=== PATIENT | female | born 1940 | race Caucasian/White ===

== ENCOUNTER 2018-07-15 17:15 | Inpatient (IN) ==
[2018-07-15] MEDS: NALOXONE HCL 0.4 MG/ML VIAL IV ONE (18:03)
[2018-07-15] MEDS: 0.9 % SODIUM CHLORIDE 1,000 ML IV ONE ×2 (18:03→20:45)
--- NOTE | 2018-07-15 18:08 | Emergency Department Note ---
Nausea/Vomiting/Diarrhea HPI - General Chief complaint: Nausea/Vomiting/Diarrhea Stated complaint: N/V/D x 2 Days Time Seen by Provider: 07/15/18 17:20 Source: patient, family, EMS Mode of arrival: EMS Limitations: no limitations - History of Present Illness HPI Narrative: This 77-year-old female was picked up by EMS after being summoned by . Reportedly had 103 degrees temp per EMS. Was found on the toilet. Had been there about 4 hours off of her oxygen which she takes at home at 2 to 3 L/min for chronic significant/severe COPD/emphysema. She has had nausea, vomiting, diarrhea for the last couple of days. is unaware of other specific fevers, chills, sweats. Diarrhea, nausea, vomiting began yesterday as well as becoming quite lethargic and listless and less responsive. When patient awoke after the Narcan she indicates that she has not had any diarrhea but has had yesterday one episode of vomiting and 3-4 episodes today. She seemed to struggle somewhat however, in remembering. - Related Data Home Medications Medication Instructions Recorded Confirmed Ranitidine HCl [Zantac] 300 mg PO QHS 09/14/14 06/03/18 Tiotropium [place] [Spiriva] 18 mcg INH DAILY 09/14/14 06/03/18 cholecalciferol (vitamin D3) 1,000 1,000 unit PO QDAY cap 07/06/16 06/03/18 unit capsule albuterol sulfate HFA 90 2 puff INHALATION Q6H PRN 03/13/18 06/03/18 mcg/actuation aerosol inhaler tramadol 50 mg tablet 50 mg PO TID PRN tab 03/13/18 06/03/18 ferrous sulfate 27 mg iron tablet 27 mg PO QDAY tab 04/29/18 06/03/18 Previous Rx's Medication Instructions Recorded sodium citrate-citric acid 500 30 ml PO QDAY #900 ml 09/07/17 mg-334 mg/5 mL oral solution Placard #1 ea 07/04/18 Allergies Allergy/AdvReac Type Severity Reaction Status Date / Time doxycycline Allergy Unknown Unknown Unverified 06/03/18 15:24 Review of Systems Constitutional: Denies: fever, chills, sweats Cardiovascular: Denies: chest pain Respiratory: Denies: shortness of breath, cough Gastrointestinal: Denies: abdominal pain Genitourinary: Denies: dysuria Neurological: Reports: headache, weakness, dizziness Psychiatric: Denies: anxiety, depression Past Medical History - Past Medical History [facility] Narrative: Medical History (Last Updated 07/15/18 @ 18:07 by Ravinder Dimas DO) History of bladder cancer (Chronic) History of recurrent UTI (urinary tract infection) (Chronic) Anemia in CKD (chronic kidney disease) (Chronic) Migraines (Chronic) 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) GERD (gastroesophageal reflux disease) (Chronic) Hypercholesterolemia (Chronic) Backache, unspecified (Chronic) Renal insufficiency, mild (Chronic) Rib pain on left side (Chronic) Incontinence (Chronic) Urethral cancer (Chronic) Osteopenia (Chronic) Heartburn (Chronic) Tobacco user (Chronic) Malignant neoplasm of bladder (Chronic) Actinic keratosis (Chronic) Hearing loss (Chronic) Urinary incontinence (Chronic) PVD (peripheral vascular disease) (Chronic) Chronic kidney disease, stage 3 (Chronic) Other emphysema (Chronic) KAUFFMAN (dyspnea on exertion) (Chronic) Past Surgical History (Last Updated 07/15/18 @ 18:08 by Ravinder Dimas DO) H/O lithotripsy (Chronic) History of bilateral salpingo-oophorectomy (BSO) (Chronic ~2003) History of total abdominal hysterectomy (Chronic ~2003) History of cholecystectomy (Chronic) H/O tubal ligation (Chronic ~2003) S/P appendectomy (Acute) History of surgery (Acute) History of bladder replacement (Chronic) History of tonsillectomy and adenoidectomy (Chronic) Family History (Last Reviewed 06/03/18 @ 15:46 by Rachana Hobbs RN) Unknown Family history unknown Medical history: Reports: other Psychiatric history: Denies: anxiety, depression Surgical history ED: Reports: cholecystectomy, BETH/BSO Family history: Reports: adopted - Social History smoking status: Former smoker Alcohol use: Reports: None Drug use: Reports: none. Denies: marijuana Physical Exam Limitations: no limitations General appearance: obtunded, sleepy, other (With being spoken to will raise her eyes and briefly make eye contact even an occasional smile.) Head: atraumatic, normocephalic Eye: Present: EOMI ENT: mucous membranes dry Neck: Present: trachea midline. Absent: lymphadenopathy, thyromegaly Chest: Present: symmetric chest wall rise Respiratory: Present: respiratory distress (Seems to be breathing in the rate of 34 to 38 breaths/min that are quite shallow. Poor respiratory effort. Durations running mostly in the upper 90s.), accessory muscle use. Absent: rales/crackles, wheezes, stridor, prolonged expiratory phase Cardiovascular: Present: tachycardia, other (Cardiac sounds are very distant and hard to hear. Radial pulses very rapid and thready.). Absent: systolic murmur, diastolic murmur Abdominal: Present: soft. Absent: distention, tenderness, guarding, rebound, rigidity, organomegaly, mass Extremities: Absent: pedal edema, pretibial edema, calf tenderness Psychiatric: Present: poor eye contact Skin: Present: cool Course Vital Signs Temperature 101.8 F H 07/15/18 17:16 Pulse Rate 139 H 07/15/18 17:16 Respiratory Rate 24 H 07/15/18 17:16 Blood Pressure 144/54 07/15/18 17:16 Pulse Oximetry (%) 94 07/15/18 17:16 Temperature 98.1 F 07/15/18 19:21 Pulse Rate 86 07/15/18 22:46 Respiratory Rate 26 H 07/15/18 22:46 Blood Pressure 116/59 07/15/18 22:46 Pulse Oximetry (%) 95 07/15/18 22:46 Nausea/Vomiting/Diarrhea - [facility] Narrative Medical decision making narrative: 5:20 PM - rather significant tachycardia and tachypnea on a background of several days of nausea vomiting and diarrhea now with fever. Tylenol ordered. Blood cultures being obtained. Sepsis work-up and cardiac work-up. EKG demonstrates tachycardia sinus rhythm with lateral ST-T wave mild depression of 1 to 2 mm. 6:26 PM - after Narcan patient had a remarkable improvement in alertness, eye movement, ease of breathing, etc. She was still tachycardic. She was int eractive and appropriate and not obtunded or sleepy. Upon questioning, she admits to a tramadol somewhere late morning or early afternoon and she believes it is a 300 mg tablet that she takes only rarely. She takes it usually for pain on the left flank area that has not been specifically identified as cause. This she states was prescribed last year and she is not certain by home. She only takes it rarely. With this increase in alertness I was able to obtain a review of systems. See that section of the chart. 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 She has however had blood pressures low in the 76-99 range systolic and maintained a tachycardia in the 100 110 range. I spoke with Dr. Banks regarding her circumstances. A lactic acid is being added as well as IV antibiotics and pressors for sepsis at this point. Including his acyclovir. An exact source is not identified at this point in time of her fever. Urine was not able to be collected due to limited bladder output or incontinence. Her creatinine is 1.6 with the BUN of 49 showing some azotemia. Additional fluids are being given. We will reattempt to have a catheterized urine specimen. Dr. Banks accepted the care of this patient. 9:30 PM - on brief reexam of patient she remains again alert and interactive. Systolic is now 99. She is beginning the third liter of normal saline. Her abdomen on reexam some tenderness on the right side and right lower quadrant area and minor on the left. There is no specific rebound or guarding or splinting. No masses palpable. Because there is no source, and I had discussed trying to help find a source with Dr. Banks, CT of the abdomen and pelvis is ordered. - Medical Records Medical records reviewed: Yes I reviewed the patient's medical records. - Lab Data Lab results reviewed: Yes I reviewed the patient's lab results. Result diagrams: 07/15/18 Unknown 07/15/18 Unknown Lab Results 07/15/18 07/15/18 07/15/18 Range/Units 18:00 18:00 21:35 WBC (4.5-11.0) K/mcL RBC (4.00-5.20) M/mcL Hgb (12.0-15.0) g/dL Hct (36.0-48.0) % MCV (80.0-100.0) fL MCH (26.0-34.0) pg MCHC (31.0-36.0) g/dL RDW (11.5-14.5) % Plt Count (140-440) K/mcL MPV (7.4-10.4) fL Gran % (38.0-78.0) % Lymph % (Auto) (15.5-49.0) % Menard % (Auto) (1.0-12.0) % Eos % (Auto) (0.0-7.0) % Baso % (Auto) (0.0-2.0) % Gran # (1.8-8.0) K/mcL Lymph # (Auto) (1.5-4.8) K/mcL Menard # (Auto) (0.1-0.9) K/mcL Eos # (Auto) (0.0-0.7) K/mcL Baso # (Auto) (0.0-0.3) K/mcL Patient Temperature Not Reportable ABG pH 7.44 (7.35-7.45) U ABG pH (Temp Correct) Not Reportable ABG pCO2 29.3 L (35.0-45.0) mmHg ABG pCO2 (Temp Corrct Not Reportable ABG pO2 94 (80-100) mmHg ABG pO2 (Temp Correct Not Reportable ABG HCO3 19.4 L (22.0-26.0) mmol/L ABG Total CO2 20.3 L (23.0-27.0) mmol/L ABG O2 Saturation 95.8 (94.0-97.0) % ABG Base Excess -3.7 L (-2.0-2.0) ABG Methemoglobin 0.3 L (0.4-1.5) % VBG Lactic Acid 2.6 H (0.5-2.0) mmol/L Carboxyhemoglobin 1.2 (0.0-1.5) % THgb Total Hemoglobin 12.2 (12.0-15.0) gm/dL Respiration Rate Not Reportable O2 Delivery Method Not Reportable O2 Delivery Level Not Reportable Vent Mode Not Reportable FiO2 Not Reportable Tidal Volume Not Reportable PEEP Not Reportable Sodium (133-145) mmol/L Potassium (3.3-5.1) mmol/L Chloride (96-108) mmol/L Carbon Dioxide (22-30) mmol/L Anion Gap (8-16) BUN (8-23) mg/dl Creatinine (0.6-1.1) mg/dl GFR Calculation Glucose (70-105) mg/dL Calcium (8.6-10.4) mg/dl Total Bilirubin (0.0-1.0) mg/dL AST (0-37) U/l ALT (0-40) U/l Alkaline Phosphatase (39-117) U/L Troponin T 0.05 H* (0-0.03) ng/ml Total Protein (5.9-8.4) gm/dL Albumin (3.2-5.2) gm/dL Globulin (2.2-3.7) gm/dL Albumin/Globulin Ratio (1.0-2.3) Procalcitonin (<0.10) ng/mL 07/15/18 07/15/18 07/15/18 Range/Units Unknown Unknown Unknown WBC 7.7 (4.5-11.0) K/mcL RBC 4.06 (4.00-5.20) M/mcL Hgb 12.5 (12.0-15.0) g/dL Hct 37.2 (36.0-48.0) % MCV 91.7 (80.0-100.0) fL MCH 30.8 (26.0-34.0) pg MCHC 33.6 (31.0-36.0) g/dL RDW 13.7 (11.5-14.5) % Plt Count 328 (140-440) K/mcL MPV 7.5 (7.4-10.4) fL Gran % 97.3 H (38.0-78.0) % Lymph % (Auto) 2.4 L (15.5-49.0) % Menard % (Auto) 0.1 L (1.0-12.0) % Eos % (Auto) 0.2 (0.0-7.0) % Baso % (Auto) 0 (0.0-2.0) % Gran # 7.5 (1.8-8.0) K/mcL Lymph # (Auto) 0.2 L (1.5-4.8) K/mcL Menard # (Auto) 0 L (0.1-0.9) K/mcL Eos # (Auto) 0 (0.0-0.7) K/mcL Baso # (Auto) 0 (0.0-0.3) K/mcL Patient Temperature ABG pH (7.35-7.45) U ABG pH (Temp Correct) ABG pCO2 (35.0-45.0) mmHg ABG pCO2 (Temp Corrct ABG pO2 (80-100) mmHg ABG pO2 (Temp Correct ABG HCO3 (22.0-26.0) mmol/L ABG Total CO2 (23.0-27.0) mmol/L ABG O2 Saturation (94.0-97.0) % ABG Base Excess (-2.0-2.0) ABG Methemoglobin (0.4-1.5) % VBG Lactic Acid (0.5-2.0) mmol/L Carboxyhemoglobin (0.0-1.5) % THgb Total Hemoglobin (12.0-15.0) gm/dL Respiration Rate O2 Delivery Method O2 Delivery Level Vent Mode FiO2 Tidal Volume PEEP Sodium 137 (133-145) mmol/L Potassium 3.6 (3.3-5.1) mmol/L Chloride 102 (96-108) mmol/L Carbon Dioxide 17 L (22-30) mmol/L Anion Gap 18.0 H (8-16) BUN 49 H (8-23) mg/dl Creatinine 1.6 H (0.6-1.1) mg/dl GFR Calculation 31 Glucose 173 H (70-105) mg/dL Calcium 9.3 (8.6-10.4) mg/dl Total Bilirubin 0.7 (0.0-1.0) mg/dL AST 23 (0-37) U/l ALT 18 (0-40) U/l Alkaline Phosphatase 170 H (39-117) U/L Troponin T < 0.01 (0-0.03) ng/ml Total Protein 7.0 (5.9-8.4) gm/dL Albumin 3.7 (3.2-5.2) gm/dL Globulin 3.3 (2.2-3.7) gm/dL Albumin/Globulin Ratio 1.1 (1.0-2.3) Procalcitonin (<0.10) ng/mL 07/15/18 Range/Units Unknown WBC (4.5-11.0) K/mcL RBC (4.00-5.20) M/mcL Hgb (12.0-15.0) g/dL Hct (36.0-48.0) % MCV (80.0-100.0) fL MCH (26.0-34.0) pg MCHC (31.0-36.0) g/dL RDW (11.5-14.5) % Plt Count (140-440) K/mcL MPV (7.4-10.4) fL Gran % (38.0-78.0) % Lymph % (Auto) (15.5-49.0) % Menard % (Auto) (1.0-12.0) % Eos % (Auto) (0.0-7.0) % Baso % (Auto) (0.0-2.0) % Gran # (1.8-8.0) K/mcL Lymph # (Auto) (1.5-4.8) K/mcL [place] # (Auto) (0.1-0.9) K/mcL Eos # (Auto) (0.0-0.7) K/mcL Baso # (Auto) (0.0-0.3) K/mcL Patient Temperature ABG pH (7.35-7.45) U ABG pH (Temp Correct) ABG pCO2 (35.0-45.0) mmHg ABG pCO2 (Temp Corrct ABG pO2 (80-100) mmHg ABG pO2 (Temp Correct ABG HCO3 (22.0-26.0) mmol/L ABG Total CO2 (23.0-27.0) mmol/L ABG O2 Saturation (94.0-97.0) % ABG Base Excess (-2.0-2.0) ABG Methemoglobin (0.4-1.5) % VBG Lactic Acid (0.5-2.0) mmol/L Carboxyhemoglobin (0.0-1.5) % THgb Total Hemoglobin (12.0-15.0) gm/dL Respiration Rate O2 Delivery Method O2 Delivery Level Vent Mode FiO2 Tidal Volume PEEP Sodium (133-145) mmol/L Potassium (3.3-5.1) mmol/L Chloride (96-108) mmol/L Carbon Dioxide (22-30) mmol/L Anion Gap (8-16) BUN (8-23) mg/dl Creatinine (0.6-1.1) mg/dl GFR Calculation Glucose (70-105) mg/dL Calcium (8.6-10.4) mg/dl Total Bilirubin (0.0-1.0) mg/dL AST (0-37) U/l ALT (0-40) U/l Alkaline Phosphatase (39-117) U/L Troponin T (0-0.03) ng/ml Total Protein (5.9-8.4) gm/dL Albumin (3.2-5.2) gm/dL Globulin (2.2-3.7) gm/dL Albumin/Globulin Ratio (1.0-2.3) Procalcitonin 7.55 (<0.10) ng/mL - Radiology Data Radiology results reviewed: Yes I reviewed the patient's radiology results. Disposition Pt seen by FURRIER DESIGNER/PA only: No Clinical Impression: Respiratory depression, Elevated procalcitonin, Septic shock Sepsis Qualifiers: Sepsis type: sepsis due to unspecified organism Qualified Code(s): A41.9 - Sepsis, unspecified organism Disposition: Xfer As Inpt ([facility]) Condition: Serious Referrals: Deborah Ramsay ARNP [Primary Care Provider] -
[2018-07-15] MEDS: ONDANSETRON 4 MG/2 ML VIAL IV ONE (18:17)
[2018-07-15 18:23] LABS: ABG Base Excess -3.7 (-2.0-2.0); ABG HCO3 19.4 mmol/L (22.0-26.0); ABG Methemoglobin 0.3 % (0.4-1.5); ABG Oxygen Saturation 95.8 % (94.0-97.0); ABG PCO2 29.3 mmHg (35.0-45.0); ABG PH 7.44 U (7.35-7.45); ABG PO2 94 mmHg (80-100); ABG TCO2 20.3 mmol/L (23.0-27.0)
[2018-07-15] MEDS: ACETAMINOPHEN 325 MG TABLET PO ONE (18:36)
[2018-07-15 18:38] LABS: Basophils # (Auto) 0 K/mcL (0.0-0.3); Basophils % (Auto) 0 % (0.0-2.0); Eosinophils # (Auto) 0 K/mcL (0.0-0.7); Eosinophils % (Auto) 0.2 % (0.0-7.0); Granulocytes % (Auto) 97.3 % (38.0-78.0); Lymphocytes # (Auto) 0.2 K/mcL (1.5-4.8); Lymphocytes % (Auto) 2.4 % (15.5-49.0); Mean Cell Volume 91.7 fL (80.0-100.0); Mean Corpuscular HGB Conc 33.6 g/dL (31.0-36.0); Monocytes # (Auto) 0 K/mcL (0.1-0.9); Monocytes % (Auto) 0.1 % (1.0-12.0); Platelet Count 328 K/mcL (140-440); RBC 4.06 M/mcL (4.00-5.20); Red Cell Distribution Width 13.7 % (11.5-14.5)
[2018-07-15] MEDS: ACETAMINOPHEN 650 MG SUPP.RECT PR ONE (18:49)
[2018-07-15 18:59] LABS: ALT/SGPT 18 U/l (0-40); Albumin 3.7 gm/dL (3.2-5.2); Albumin/Globulin Ratio 1.1 (1.0-2.3); Alkaline Phosphatase 170 U/L (39-117); Blood Urea Nitrogen 49 mg/dl (8-23)
[2018-07-15] MEDS: cefTRIAXone 2 GM in DEXTROSE 5% IN WATER 50 ML IV ONE (21:51)
[2018-07-15] MEDS: NOREPINEPHRINE BITARTRATE 16 MG in 0.9 % SODIUM CHLORIDE 234 ML IV SCH (21:51)
[2018-07-15] MEDS: 0.9 % SODIUM CHLORIDE 250 ML IV SCH (21:52)
[2018-07-15] MEDS: LACTATED RINGERS 1,000 ML IV ONE (21:54)
[2018-07-15] MEDS: VANCOMYCIN 1,000 MG in 0.9 % SODIUM CHLORIDE 250 ML IV ONE (22:12)
[2018-07-16] MEDS ORDERED: ACETAMINOPHEN 325 MG TABLET PO PRN (01:04)
[2018-07-16] MEDS ORDERED: VANCOMYCIN PER PHARMACY IV SCH (01:04)
[2018-07-16] MEDS ORDERED: IPRATROPIUM/ALBUTEROL 3 ML AMPUL.NEB NEB PRN (01:04)
[2018-07-16] MEDS: cefTRIAXone 2 GM in DEXTROSE 5% IN WATER 50 ML IV SCH (01:12)
[2018-07-16] MEDS: ACYCLOVIR SODIUM 500 MG VIAL IV STA (01:28)
[2018-07-16] MEDS: 0.9 % SODIUM CHLORIDE 250 ML IV SCH ×2 (01:38→09:37)
[2018-07-16] MEDS: ONDANSETRON 4 MG/2 ML VIAL IV PRN (03:10)
[2018-07-16] MEDS: ONDANSETRON 4 MG/2 ML VIAL ONE (03:40)
[2018-07-16] MEDS: HYDROmorphone 2 MG/ML VIAL IV PRN (04:34)
[2018-07-16] MEDS: 0.9 % SODIUM CHLORIDE 1,000 ML IV SCH (04:40)
[2018-07-16 05:07] LABS: ABG Base Excess -8.9 (-2.0-2.0); ABG HCO3 15.4 mmol/L (22.0-26.0); ABG Methemoglobin 0.3 % (0.4-1.5); ABG Oxygen Saturation 91.7 % (94.0-97.0); ABG PCO2 27.7 mmHg (35.0-45.0); ABG PH 7.36 U (7.35-7.45); ABG PO2 67 mmHg (80-100); ABG TCO2 16.2 mmol/L (23.0-27.0)
[2018-07-16] MEDS: HYDROmorphone 2 MG/ML VIAL ONE (05:17)
[2018-07-16] MEDS ORDERED: ACYCLOVIR SODIUM 500 MG VIAL IV SCH (06:00)
[2018-07-16 06:06] LABS: ALT/SGPT 33 U/l (0-40); Albumin 2.6 gm/dL (3.2-5.2); Albumin/Globulin Ratio 0.9 (1.0-2.3); Alkaline Phosphatase 136 U/L (39-117); Bilirubin,Direct < 0.2 mg/dL (0.0-0.3); Blood Urea Nitrogen 44 mg/dl (8-23); Gamma Glutamyl Transpeptidase 68 U/L (5-36); Uric Acid 7.1 mg/dL (2.5-8.0)
[2018-07-16] MEDS ORDERED: 0.9 % SODIUM CHLORIDE 1,000 ML IV SCH (06:30)
[2018-07-16] MEDS: 0.9 % SODIUM CHLORIDE 10 ML SYRINGE IV SCH (06:32)
[2018-07-16] MEDS: 0.9 % SODIUM CHLORIDE 1,000 ML IV ONE ×2 (06:33→09:33)
--- NOTE | 2018-07-16 07:15 | Internal Med History&Physical ---
Medical - H&P: HPI Patient information: Note initiated : 07/16/18 at 7:13 am Service Date, if different from initiated Date: [] Patient: Ciarra Manzano 77 y/o F admitted on 07/16/18 for N/V/D x 2 Days. Chief Complaint: [] Chief complaint: fever shaking chills abdominal pain History of present illness: Ms. Manzano is a 77 year old F with a history of prior bladder cancer/neobladder/recurrent nephrolithiasis who presents to the ER along with Chester Manzano with significant onset of weakness fatigue, nausea along with fevers shaking chills. Patient has not been able to function or get out of bed. It has been a progressive decline in the last 72 hours. Initial workup in the ER was consistent with septic shock, patient was started on pressors, CT abdomen revealed obstructive uropathy with perinephric stranding consistent with pyelonephritis. Hospitalist service was consulted. At the time of evaluation patient is fatigued and lethargic. She is able to answer some of the questions. Most of history is obtained from medical records, ER physician and patient's Jace. Initial [place] 2 score 18 based on hypotension/need for pressors. Patient admitted directly to intensive care unit. Rapid administration of 4 L crystalloids ordered Patient denied changes in medication, she denies recent URI/UTIs. She endorses to lightheadedness, loss of appetite. Denies diarrhea, rash, joint pain Review of systems 10 point review of systems was performed and is negative except for ones discussed above Medical - H&P: PMH Medical history: Recurrent nephrolithiasis status post lithotripsy COPD (chronic obstructive pulmonary disease) with emphysema (Chronic) GERD (gastroesophageal reflux disease) (Chronic) Hypercholesterolemia (Chronic) Backache, unspecified (Chronic) Renal insufficiency, mild (Chronic) Rib pain on left side (Chronic) Incontinence (Chronic) Urethral cancer (Chronic) Osteopenia (Chronic) Heartburn (Chronic) Tobacco user (Chronic) Malignant neoplasm of bladder (Chronic) Actinic keratosis (Chronic) Hearing loss (Chronic) Urinary incontinence (Chronic) PVD (peripheral vascular disease) (Chronic) Chronic kidney disease, stage 3 (Chronic) Other emphysema (Chronic) KAUFFMAN (dyspnea on exertion) (Chronic) Surgical History H/O lithotripsy (Chronic) 10/20/2014 Left ureteral stone History of bilateral salpingo-oophorectomy (BSO) (Chronic ~2003) History of total abdominal hysterectomy (Chronic ~2003) History of cholecystectomy (Chronic) H/O tubal ligation (Chronic ~2003) History of surgery (Acute) 2003 cystectomy,BETH,BSO,cancer per patient. History of bladder replacement (Chronic) Neobladder History of tonsillectomy and adenoidectomy (Chronic) Family History Unknown Family history unknown Social History adopted: Yes marital status: occupational status: retired physical activity: other frequency: 3-4 times per week smoking status: Former smoker quit date: 08/19/17 alcohol intake frequency: holiday/special occasion only substance use type: does not use Social history: to Jace Manzano Medical - H&P: Meds Home Medications Medication Instructions Recorded Confirmed Type Ranitidine HCl [Zantac] 300 mg PO QHS 09/14/14 07/16/18 History Tiotropium [place] [Spiriva] 18 mcg INH DAILY 09/14/14 06/03/18 History cholecalciferol (vitamin D3) 1,000 1,000 unit PO QDAY cap 07/06/16 07/16/18 History unit capsule sodium citrate-citric acid 500 30 ml PO QDAY #900 ml 09/07/17 07/16/18 Rx mg-334 mg/5 mL oral solution albuterol sulfate HFA 90 2 puff INHALATION Q6H PRN 03/13/18 07/16/18 History mcg/actuation aerosol inhaler tramadol 50 mg tablet 50 mg PO TID PRN tab 03/13/18 06/03/18 History ferrous sulfate 27 mg iron tablet 27 mg PO QDAY tab 04/29/18 07/16/18 History Placard #1 ea 07/04/18 Rx Allergies Allergy/AdvReac Type Severity Reaction Status Date / Time doxycycline Allergy Unknown Unknown Verified 07/16/18 04:30 Medical - H&P: Exam - Constitutional Vitals: Temp Pulse Resp BP Pulse Ox 97.7 F 109 H 24 H 87/47 99 07/16/18 04:00 07/16/18 06:43 07/16/18 06:43 07/16/18 06:30 07/16/18 06:43 General appearance: moderate distress Exam: Cold clammy and shaking Head normocephalic Neck and lymph adenopathy S1 and S2 regular rhythm tachycardia Systolic murmur Oral cavity dry No ear discharge Diminished breath sounds bilateral bases Abdomen minimal tenderness CVA Lower extremity no cyanosis clubbing Skin no suspicious lesion Psych anxious Medical - H&P: Reslt - Labs CBC & Chem 7: 07/16/18 03:35 07/16/18 03:35 Labs: Short CBC 07/15/18 Range/Units Unknown WBC 7.7 (4.5-11.0) K/mcL Hgb 12.5 (12.0-15.0) g/dL Hct 37.2 (36.0-48.0) % Plt Count 328 (140-440) K/mcL BMP 07/15/18 07/16/18 Unknown 03:35 Sodium 137 139 Potassium 3.6 3.8 Chloride 102 107 Carbon Dioxide 17 L 15 L BUN 49 H 44 H Creatinine 1.6 H 1.9 H Glucose 173 H 100 Calcium 9.3 8.1 L Cardiac Enzymes 07/15/18 07/15/18 Range/Units 21:35 Unknown Troponin T 0.05 H* < 0.01 (0-0.03) ng/ml Liver Function 07/15/18 07/16/18 Range/Units Unknown 03:35 Total Bilirubin 0.7 0.4 (0.0-1.0) mg/dL Direct Bilirubin < 0.2 (0.0-0.3) mg/dL GGT 68 H (5-36) U/L AST 23 59 H (0-37) U/l ALT 18 33 (0-40) U/l Alkaline Phosphatase 170 H 136 H (39-117) U/L Albumin 3.7 2.6 L (3.2-5.2) gm/dL - ABG Interpretation ABG results: 07/15/18 07/16/18 18:00 04:25 ABG pH 7.44 7.36 ABG pCO2 29.3 L 27.7 L ABG pO2 94 67 L ABG HCO3 19.4 L 15.4 L ABG Total CO2 20.3 L 16.2 L ABG O2 Saturation 95.8 91.7 L ABG Base Excess -3.7 L -8.9 L ABG Methemoglobin 0.3 L 0.3 L Medical - H&P: A/P (1) Septic shock Current visit: Yes Status: Acute * Septic shock- continue pressors/crystalloids. Management per guidelines. Venous lactic elevated. Broad antibiotic coverage. Likely source gram-neg ative tender toxic shock from UTI. [place] II score 18, high risk mortality, aware * Obstructive uropathy with pyelonephritis. Urology/IR consult for decompression * Multiple sepsis end organ dysfunction including elevated LFTs, creatinine, troponins * History of COPD continue bronchodilators * DNR * Prophylaxis heparin Plan * Septic shock management per guidelines, continue pressors to keep map at goal * Very high risk mortality based on [place] 2 score * Pancultures * On antibiotic coverage * urology consult/intervention radiology * ICU care Medical - H&P: Qual - Stroke Symptom Onset Unknown: No - VTE Deep Vein Thrombosis/Pulmonary Embolism Present on Admission: No
[2018-07-16] MEDS: PIPERACILLIN SODIUM/TAZOBACTAM 2.25 GM in DEXTROSE 5% IN WATER 50 ML IV SCH (07:18)
--- NOTE | 2018-07-16 07:44 | XRay Report ---
HISTORY: Fever, history of COPD nausea and vomiting FINDINGS: Lungs are clear and well expanded but not hyperinflated. There is no evidence of pneumonia, mass or congestive heart failure. The heart size, mediastinum, emily and pleura are normal. There has been no significant change since 09/18/14. IMPRESSION: Normal exam Interpreted and Authenticated by: Jose Amin 07/16/18
--- NOTE | 2018-07-16 08:09 | Cat Scan Report ---
CLINICAL INFORMATION: Kidney stones with sepsis and prior history of bladder and urethral carcinoma COMPARISON: Abdominal x-ray on 04/08/[address] scan on 07/11/07 TECHNIQUE: The abdomen was imaged without oral or IV contrast, scanning from the diaphragm to the symphysis pubis. Sagittal and coronal reformats were created. The radiation exposure was limited using dose reduction technology. FINDINGS: There is mild pulmonary fibrosis in both lung bases with greatest involvement in the inferior segment lingula. No lung masses seen in the basis and there is no pleural effusion. Evaluation of abdominal organs without contrast is somewhat limited. No abnormality is seen within the liver, spleen, pancreas or adrenals. The gallbladder is surgically absent. The bile ducts are nondilated. Moderate hydronephrosis is present in both kidneys due to large stones at the ureteropelvic junctions. Stone in the right side measures 1.1 cm and the stone in the left side measures 1.5 cm. The lower pole calyx of the right kidney there is a 3 mm stone. There are multiple intermediate sized stones in the calyces throughout the left kidney and in the left renal pelvis. Largest are in the pelvis and measure up to 9 mm. Stone at the right ureteropelvic junction was previously located in a lower pole calyx. A large stone in the left UPJ has not changed significantly in location. There are a few relatively subtle low-attenuation lesions in the renal parenchyma in the lower third of the left kidney. The largest measures 2 cm. One of these was present in 2007. There is absence developed. These are probably cysts and less likely multifocal pyelonephritis. Renal neoplasm is possible but less likely. There is moderate stranding of the perinephric fat bilaterally due to the ureteral obstructions. Distal to the stones, the ureters are decompressed. The urinary bladder has been resected and there are clips deep in the midline of the pelvis. There may be a decompressed ileal conduit in the left lower pelvis. A row surgical sutures around a loop of small bowel. I see no ostomy. There is normal amount stool in the colon and there is no evidence of diverticulitis or inflammatory bowel disease. No abscess or ascites are present. There is degenerative disc disease and arthritis in the lumbar spine with the greatest degeneration at L4-5 and L5-S1. IMPRESSION: Large stones at the ureteropelvic junctions bilaterally causing moderate hydronephrosis Interpreted and Authenticated by: Jose Amin 07/16/18
[2018-07-16] MEDS: MIDAZOLAM 2 MG/2 ML VIAL IV ONE (08:15)
[2018-07-16 08:39] LABS: Mean Cell Volume 94.5 fL (80.0-100.0); Mean Corpuscular HGB Conc 32.7 g/dL (31.0-36.0); Platelet Count 254 K/mcL (140-440); RBC 3.38 M/mcL (4.00-5.20); Red Cell Distribution Width 14.3 % (11.5-14.5)
[2018-07-16] MEDS: ACETAMINOPHEN 1,000 MG/100 ML BOTTLE IV PRN (08:42)
--- NOTE | 2018-07-16 08:47 | XRay Report ---
HISTORY: Central venous catheter insertion FINDINGS: A right internal jugular catheter has been inserted. The tip is in the superior vena cava at the level of the azygos arch. There is no widening in the mediastinum, pneumothorax or pleural effusion. The lungs are clear. The heart size is normal. IMPRESSION: No complication following insertion of a right internal jugular catheter The ICU was called with the results Interpreted and Authenticated by: Jose Amin 07/16/18
--- NOTE | 2018-07-16 08:53 | Procedure Note ---
Procedures - Central Line Placement Right IJ Consent obtained: verbal consent Time out performed: Yes Patient placed on monitor/pulse ox: Yes MD prep: mask, sterile gown, sterile gloves, cap Central line prep: 2% Chlorhexidine scrub, proper hand hygiene Local anesthesia used: lidocaine 1% Amount of anesthesia used (mls): 5 Ultrasound used for placement: Yes Central line lumen inserted: quad, 16 cm Post procedure: sutured in place, good blood return, all ports aspirated, flus hed, capped, sterile dressing applied Post procedure x-ray: tip of catheter in good position Patient tolerated procedure: well
[2018-07-16 08:59] LABS: Band Neutrophils % 17 % (0-10); Lymphocytes % 5 % (15-49); Monocytes % (Manual) 1 % (1-12); Platelet Estimate NORMAL (NORMAL); RBC Morphology NORMAL (NORMAL); Segmented Neutrophils % 77 % (38-78)
[2018-07-16] MEDS: HEPARIN 5,000 UNIT/ML VIAL SQ SCH (09:25)
[2018-07-16] MEDS: DOCUSATE SODIUM 100 MG CAPSULE PO SCH (09:25)
[2018-07-16] MEDS: MULTIVIT,THER IRON,CA,FA & MIN 1 TABLET PO SCH (09:25)
[2018-07-16] MEDS: VANCOMYCIN 1,000 MG in 0.9 % SODIUM CHLORIDE 250 ML IV SCH (09:26)
[2018-07-16] MEDS: VASOPRESSIN 20 UNIT in DEXTROSE 5% IN WATER 99 ML IV SCH (09:38)
--- NOTE | 2018-07-16 09:59 | Transfer Summary ---
Transfer Discharge Sum: Prov Patient information: Note initiated : 07/16/18 at 9:55 am Service Date, if different from initiated Date: [] Patient: Ciarra Manzano 77 y/o F admitted on 07/16/18 for N/V/D x 2 Days. Chief Complaint: [] Date of admission: 07/16/18 00:50 Discharge Date: 07/16/18 Primary care physician: Deborah Ramsay Consults: 07/15/18 Consult to Physician [CONS] Stat Comment: Consulting Provider: Pipe Mohr Reason For Exam: Physician to Consult Transfer Discharge Sum: Diag - Discharge Diagnosis (1) Septic shock Status: Acute Transfer Discharge Sum: Med - Medications Active and Home Medications: Home Medications Ranitidine HCl [Zantac] 300 mg PO QHS 09/14/14 [History Confirmed 07/16/18] Tiotropium Aurora [Spiriva] 18 mcg INH DAILY 09/14/14 [History Confirmed 06/03/18] cholecalciferol (vitamin D3) 1,000 unit capsule 1,000 unit PO QDAY cap 07/06/16 [History Confirmed 07/16/18] sodium citrate-citric acid 500 mg-334 mg/5 mL oral solution 30 ml PO QDAY #900 ml 09/07/17 [Rx Confirmed 07/16/18] albuterol sulfate HFA 90 mcg/actuation aerosol inhaler 2 puff INHALATION Q6H PRN 03/13/18 [History Confirmed 07/16/18] tramadol 50 mg tablet 50 mg PO TID PRN tab 03/13/18 [History Confirmed 06/03/18] ferrous sulfate 27 mg iron tablet 27 mg PO QDAY tab 04/29/18 [History Confirmed 07/16/18] Placard #1 ea 07/04/18 [Rx] Active Medications Acetaminophen (Tylenol) 650 mg PO Q4-6HP PRN PRN Reason: PAIN/FEVER > 101 Albuterol/Ipratropium (Duoneb) 3 ml NEB Q4HP PRN PRN Reason: Shortness Of Breath Docusate Sodium (Colace) 100 mg PO BID [facility] Last Admin: 07/16/18 09:25 Dose: Not Given Documented by: Heparin Sodium (Porcine) (Heparin) 5,000 unit SQ Q12 AL Last Admin: 07/16/18 09:25 Dose: Not Given Documented by: Hydromorphone HCl (Dilaudid) 0.25 mg IV Q4-6HP PRN PRN Reason: PAIN LEVEL > 6 Last Admin: 07/16/18 04:34 Dose: 0.25 mg Documented by: Norepinephrine Bitartrate 16 (mg/ Sodium Chloride) 250 mls @ 9.38 mls/hr IV Q24H [facility]; Protocol Sodium Chloride (Sodium Chloride 0.9%) 1,000 mls @ 50 mls/hr IV .Q20H [facility] Stop: 07/18/18 13:03 Last Admin: 07/16/18 04:40 Dose: 50 mls/hr Documented by: Sodium Chloride (Sodium Chloride 0.9%) 250 mls @ 20 mls/hr IV .[id number] [facility] Last Admin: 07/16/18 01:38 Dose: 20 mls/hr Documented by: Acetaminophen (Ofirmev) 1,000 mg in 100 mls @ 200 mls/hr IV Q6HP PRN PRN Reason: PAIN/FEVER > 101 Last Infusion: 07/16/18 09:12 Dose: Infused Documented by: Vancomycin HCl 1,000 mg/ (Sodium Chloride) 250 mls @ 250 mls/hr IV Q24H [facility] Last Admin: 07/16/18 09:26 Dose: 250 mls/hr Documented by: Piperacillin Sod/Tazobactam (Sod 2.25 gm/ Dextrose) 50 mls @ 100 mls/hr IV Q6H [facility]; Protocol Last Infusion: 07/16/18 07:48 Dose: Infused Documented by: Sodium Chloride (Sodium Chloride 0.9%) 250 mls @ 20 mls/hr IV .[id number] [facility] Last Admin: 07/16/18 09:37 Dose: Not Given Documented by: Vasopressin 20 unit/ Dextrose 100 mls @ 12 mls/hr IV Q8H [facility]; Protocol Last Admin: 07/16/18 09:38 Dose: 0.02 unit/min, 6 mls/hr Documented by: Iron Carb/Multivit/Biodiesel Production Technician/Folic Acid (Multivitamin W/Minerals) 1 tab PO DAILY [facility] Last Admin: 07/16/18 09:25 Dose: Not Given Documented by: Ondansetron HCl (Zofran) 4 mg IV Q4-6HP PRN PRN Reason: Nausea And Vomiting Last Admin: 07/16/18 03:10 Dose: 4 mg Documented by: Senna/Docusate Sodium (Senna Plus Tablet) 1 tab PO HS AL Sodium Chloride (Saline Flush) 10 ml IV Q8 [facility] Last Admin: 07/16/18 06:32 Dose: Not Given Documented by: Vancomycin HCl (Vancomycin Per Pharmacy) 1 order IV UD [facility]; Protocol Transfer Discharge Sum: Hosp Hospital course: Transfer diagnosis * Septic shock- critically ill now on dual pressors. Status post 5 years crystalloids/Levophed/vasopressin. On Zosyn/vancomycin. Venous lactic uptrending. * Obstructive uropathy with pyonephrosis/pyelonephritis. Transfer to tertiary Center for percutaneous nephrostomy decompression * Multiple end organ dysfunction including elevated LFTs, AUBREY, elevated troponins and mental status change. * History of COPD Brief hospital course Ms. Manzano is a 77 year old F with a history of prior bladder cancer/neobladder/recurrent nephrolithiasis who presents to the ER along with Chester Manzano with significant onset of weakness fatigue, nausea along with fevers and shaking chills. Patient has not been able to function or get out of bed. It has been a progressive decline in the last 72 hours. Initial workup in the ER was consistent with septic shock, patient was started on pressors, CT abdomen revealed obstructive uropathy with perinephric stranding consistent with pyelonephritis. Hospitalist service was consulted. At the time of evaluation patient is fatigued and lethargic. She is able to answer some of the questions. Most of history is obtained from medical records, ER physician and patient's Jace. Initial [place] 2 score 18 based on hypotension/need for pressors. Patient admitted directly to intensive care unit. Rapid administration of 4 L crystalloids ordered 8 AM- patient critically ill. Now on dual pressors. Lactic acid 4.6. Case discussed with urology in the setting of neobladder not amenable to stenting. Also discussed with radiology who recommended transferring to tertiary Center for percutaneous nephrostomy. Case was also discussed with Dr. Garcia's and [facility] graciously accepted patient for further management. She'll be transferred via ground ambulance. - Time Spent with Patient Total time spent providing and/or coordinating transfer services: Greater than 30 minutes (critical care time) Transfer Discharge Sum: Exam - Constitutional Vitals: Vital Signs Temp Pulse Pulse Resp BP BP Pulse Ox 07/16/18 09:45 101.1 F H 111 H 21 82/41 96 07/16/18 09:30 101.4 F H 114 H 23 H 85/50 100 07/16/18 09:27 101 F H 07/16/18 09:22 101.6 F H 111 H 22 82/45 98 07/16/18 09:15 101.7 F H 111 H 23 H 74/45 100 07/16/18 09:00 101.8 F H 116 H 23 H 90/51 97 07/16/18 08:45 101.9 F H 115 H 24 H 81/48 98 07/16/18 08:42 101.9 F H 07/16/18 08:30 101.9 F H 116 H 21 85/49 100 07/16/18 08:15 101.7 F H 117 H 20 93/44 97 07/16/18 08:00 100.7 F H 117 H 22 88/50 100 07/16/18 07:47 19 103/52 07/16/18 07:30 117 H 23 H 89/50 98 07/16/18 07:28 115 H 23 H 88/51 99 07/16/18 07:15 113 H 23 H 88/47 98 07/16/18 07:00 111 H 25 H 78/46 99 07/16/18 06:45 109 H 23 H 78/45 99 07/16/18 06:43 109 H 24 H 99 07/16/18 06:30 111 H 24 H 87/47 99 07/16/18 06:15 112 H 24 H 90/50 97 07/16/18 06:09 113 H 17 51/35 99 07/16/18 06:01 109 H 24 H 74/47 97 07/16/18 06:00 110 H 25 H 78/47 97 07/16/18 05:56 109 H 24 H 79/48 97 07/16/18 05:47 112 H 23 H 85/50 97 07/16/18 05:45 111 H 24 H 65/36 96 07/16/18 05:41 110 H 24 H 63/50 96 07/16/18 05:35 112 H 19 64/34 95 07/16/18 05:30 113 H 25 H 72/45 95 07/16/18 05:26 114 H 25 H 68/47 94 07/16/18 05:24 114 H 24 H 68/47 95 07/16/18 04:42 130 H 33 H 116/52 91 07/16/18 04:31 139 H 27 H 154/92 93 07/16/18 04:16 139 H 27 H 153/82 93 07/16/18 04:12 137 H 26 H 113/71 92 07/16/18 04:00 97.7 F 131 H 27 H 157/74 93 07/16/18 03:55 126 H 26 H 133/65 97 07/16/18 03:53 123 H 28 H 95 07/16/18 03:35 127 H 30 H 138/107 97 07/16/18 03:34 127 H 27 H 97 07/16/18 03:31 128 H 28 H 143/80 97 07/16/18 03:19 133 H 24 H 142/76 98 07/16/18 03:13 132 H 31 H 100 07/16/18 03:07 131 H 23 H 97 07/16/18 02:43 29 H 112/85 81 L 07/16/18 02:00 99.3 F H 94 H 20 117/67 95 07/16/18 01:45 95 H 16 87/65 97 07/16/18 01:30 95 H 25 H 102/52 100 07/16/18 01:15 94 H 25 H 94/67 96 07/16/18 01:04 99.0 F 97 H 21 105/66 94 07/16/18 01:01 22 124/58 07/16/18 01:00 16 123/61 07/16/18 00:57 105/66 07/16/18 00:46 96 H 27 H 125/62 98 07/16/18 00:31 93 H 25 H 130/62 98 07/16/18 00:16 90 25 H 116/57 97 07/16/18 00:01 90 24 H 122/63 98 07/15/18 23:46 89 27 H 115/66 98 07/15/18 23:31 92 H 27 H 122/65 98 07/15/18 23:27 97 H 26 H 145/78 97 07/15/18 22:46 86 26 H 116/59 95 07/15/18 22:35 91 H 25 H 99/53 97 07/15/18 22:31 94 H 25 H 88/50 95 07/15/18 22:16 93 H 18 86/45 95 07/15/18 22:01 95 H 23 H 84/52 96 07/15/18 21:46 96 H 17 99/88 96 07/15/18 21:31 93 H 25 H 88/67 100 07/15/18 21:16 96 H 26 H 90/54 99 07/15/18 21:00 96 H 26 H 82/63 96 07/15/18 20:51 99 H 22 76/61 97 07/15/18 20:50 101 H 22 96 07/15/18 20:40 103 H 26 H 89/54 96 07/15/18 20:31 104 H 28 H 93/52 96 07/15/18 20:17 110 H 26 H 96/54 95 07/15/18 20:16 110 H 21 81/57 94 07/15/18 20:01 24 H 99/54 07/15/18 19:46 112 H 27 H 117/55 95 07/15/18 19:31 114 H 31 H 125/51 95 07/15/18 19:21 98.1 F 07/15/18 19:16 117 H 30 H 137/66 96 07/15/18 19:01 122 H 24 H 166/78 97 07/15/18 18:45 125 H 30 H 127/74 95 07/15/18 18:36 102 F H 07/15/18 18:31 131 H 23 H 92/61 95 07/15/18 18:19 102.5 F H 135 H 29 H 96 07/15/18 18:15 134 H 28 H 128/97 100 07/15/18 17:46 139 H 40 H 114/52 96 07/15/18 17:31 139 H 32 H 117/71 99 07/15/18 17:16 101.8 F H 139 H 24 H 144/54 94 Intake and Output 07/15/18 07/16/18 07/16/18 21:59 05:59 13:59 Intake Total 1999 1396 1198 Output Total 2 1 Balance 1999 1394 1197 Intake: IV 1999 1396 1198 Sodium Chloride 0.9% 1,000 ml @ 2000 Wide Open IV BOLUS ONE Rx#: [id number] Levophed 16 mg In Sodium 23 19 Chloride 0.9% 234 ml @ 10 MCG/ MIN 9.38 mls/hr IV Q24H [place] Rx# :[id number] Zosyn 2.25 gm In Dextrose 5% in 50 Water 50 ml @ 100 mls/hr IV Q6H [facility] Rx#:[id number] Rocephin 2 gm In Dextrose 5% in 50 Water 50 ml @ 100 mls/hr IV ONCE ONE Rx#:[id number] Output: # of times incontinent of urine 2 1 Other: Weight 140 lb 140 lb Transfer Discharge Sum: Data Procedures and tests throughout hospitalization: Transfer Discharge Sum: A/P - Problem Maintenance (1) Septic shock Status: Acute Quality Measure Queries - VTE Deep Vein Thrombosis/Pulmonary Embolism Present on Admission: No
[2018-07-16] MEDS: MAGNESIUM SULFATE 2 GM/50 ML BAG IV ONE ×2 (11:00→11:10)
[2018-07-16 11:14] LABS: Appearance,Urine CLOUDY; Bacteria,Urine 0 /hpf (0); Bilirubin,Urine NEG (NEG); Color,Urine YELLOW; Glucose,Urine (UA) NEGATIVE (NEG); Leukocyte Esterase,Urine NEG /uL (NEG); Protein,Urine 100 mg/dL (NEG); Specific Gravity,Urine 1.012 (1.000-1.035); Urine Blood >=1.0 mg/dL (<0.03); Urine RBC 49 /hpf (0-1); Urine Squamous Epithelial Cell 15 /hpf (0-4); Urine WBC 67 /hpf (0-4); Urobilinogen,Urine NEG (NEG)
[2018-07-16] MEDS: SODIUM CHLORIDE 0.9% IV SCH (12:13)
[2018-07-16] MEDS: ACYCLOVIR SODIUM IV SCH (12:13)
[2018-07-16] MEDS ORDERED: SENNOSIDES/DOCUSATE SODIUM 1 TAB TABLET PO SCH (21:00)
[2018-07-16] MEDS ORDERED: NOREPINEPHRINE BITARTRATE 16 MG in 0.9 % SODIUM CHLORIDE 234 ML IV SCH (21:15)
== END 2018-07-16 11:12 | disposition short-term general hospital (02) | DRG 871 ==
LOC: ED 17:15 → ICU 07-16 00:48
PROVIDERS: ADMIT Internal Medicine; ATTEND Internal Medicine

== ENCOUNTER 2019-06-06 08:33 | Inpatient (IN) ==
[2019-06-06] MEDS ORDERED: ACETAMINOPHEN 325 MG TABLET PO ONE (09:07)
[2019-06-06] MEDS ORDERED: 0.9 % SODIUM CHLORIDE 1,000 ML IV ONE (09:07)
[2019-06-06] MEDS ORDERED: methylPREDNISolone SOD SUCC 125 MG/2 ML VIAL IM ONE (09:28)
--- NOTE | 2019-06-06 09:28 | XRay Report ---
INDICATION: cough, fever TECHNIQUE: AP portable upright chest x-ray COMPARISON: Previous examinations dated 07/16/2018, 07/15/2018, 09/18/2014 FINDINGS: Lungs:Lungs are negative. No focal pulmonary parenchymal infiltrate or mass Heart, vascular:No significant cardiomegaly. Pulmonary vascularity is normal. No pulmonary edema or pulmonary congestion Mediastinum, emily:No mediastinal widening. No hilar mass Pleura:No pleural fluid. No pleural-based mass or calcification No acute abnormality. No interval change IMPRESSION: 1. No acute or focal abnormality 2. No interval change since 07/16/2018 Interpreted and Authenticated by: Long Patterson 06/06/19
--- NOTE | 2019-06-06 09:34 | Emergency Department Note ---
General Adult HPI - General Chief complaint: Fever Stated complaint: fever Time Seen by Provider: 06/06/19 09:28 Source: patient Mode of arrival: EMS Limitations: no limitations - History of Present Illness HPI Narrative: 78-year-old female who had a fever up to 101 here and trouble breathing starting today. She has underlying COPD and is on 3 L of oxygen [id number] at home. She did have nausea and vomiting yesterday but no diarrhea-no nausea v omiting today. She had some right flank pain yesterday but this is gone away and she has no pain today. No trouble urinating. No chest pain other. Her is not sick. She has chronic kidney disease and sees Dr. Baron. She also sees Dr. Dasilva for urology She has underlying gross hearing loss and has difficulty understanding my questions sometimes - Related Data Home Medications Medication Instructions Recorded Confirmed albuterol sulfate 90 mcg/actuation 2 puff INHALATION Q6H PRN 03/13/18 06/06/19 aerosol inhaler ferrous sulfate 27 mg iron tablet 27 mg PO DAILY tab 04/29/18 06/06/19 cholecalciferol (vitamin D3) 25 1,000 unit PO DAILY cap 11/11/18 06/06/19 mcg (1,000 unit) capsule Previous Rx's Medication Instructions Recorded potassium citrate 10 mEq (1,080 10 meq PO TID #90 tab 12/30/18 mg) tablet,extended release hydrocodone 10 mg-acetaminophen 1 tab PO Q6H PRN #20 tab 05/28/19 325 mg tablet Allergies Allergy/AdvReac Type Severity Reaction Status Date / Time doxycycline AdvReac Intermediate Itching Verified 05/28/19 14:33 Review of Systems All systems ED: reviewed and negative except as stated. Past Medical History - Past Medical History Attestation: Yes: The following information was validated with the patient. 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) GERD (gastroesophageal reflux disease) (Chronic) Hypercholesterolemia (Chronic) Backache, unspecified (Chronic) Renal insufficiency, mild (Chronic) Rib pain on left side (Chronic) Incontinence (Chronic) Urethral cancer (Chronic) Osteopenia (Chronic) Heartburn (Chronic) Tobacco user (Chronic) Malignant neoplasm of bladder (Chronic) Actinic keratosis (Chronic) Hearing loss (Chronic) Urinary incontinence (Chronic) PVD (peripheral vascular disease) (Chronic) Chronic kidney disease, stage 3 (Chronic) Other emphysema (Chronic) KAUFFMAN (dyspnea on exertion) (Chronic) Past Surgical History (Last Reviewed 05/28/19 @ 14:35 by Josephine Miranda RN) H/O lithotripsy (Chronic) History of bilateral salpingo-oophorectomy (BSO) (Chronic ~2003) History of total abdominal hysterectomy (Chronic ~2003) History of cholecystectomy (Chronic) H/O tubal ligation (Chronic ~2003) History of surgery (Acute) S/P appendectomy (Acute) History of bladder replacement (Chronic) History of tonsillectomy and adenoidectomy (Chronic) Source: old records reviewed Medical history: Reports: other Psychiatric history: Denies: anxiety, depression Surgical history ED: Reports: cholecystectomy, BETH/BSO - Social History smoking status: Former smoker Alcohol use: Reports: None Drug use: Reports: none. Denies: marijuana Physical Exam She is having sufficiently trouble breathing when she is not able to talk in full sentences at this time. She is tachycardic with a rate in the 120s and 30s. Cephalic atraumatic. Conjunctive are clear sclerae white nonicteric. No nasal discharge or congestion. She is wearing nasal cannula oxygen. Oropharynx is pink and moist. She is edentulous. Posterior pharynx is clear. Neck is supple without lymphadenopathy or thyromegaly. Heart is regular rhythm but tachycardic. I do not hear a murmur. Lungs are basically clear to auscultation bilaterally but she does have end expiratory wheeze and again is having some dyspnea. Abdomen soft nontender nondistended. No pedal edema. Alert and oriented Limitations: no limitations Course Vital Signs Temperature 101.9 F H 06/06/19 08:34 Pulse Rate 117 H 06/06/19 08:34 Respiratory Rate 26 H 06/06/19 08:34 Blood Pressure 166/74 06/06/19 08:34 Pulse Oximetry (%) 99 06/06/19 08:34 Temperature 99.8 F H 06/06/19 10:17 Pulse Rate 94 H 06/06/19 12:45 Respiratory Rate 19 06/06/19 12:45 Blood Pressure 120/44 06/06/19 12:45 Pulse Oximetry (%) 97 06/06/19 12:45 Medical Decision Making - Lab Data Lab results reviewed: Yes I reviewed the patient's lab results. Result diagrams: 06/06/19 09:34 06/06/19 09:34 Lab Results 06/06/19 06/06/19 06/06/19 Range/Units 09:34 09:34 09:34 WBC 15.1 H (4.50-11.00) K/mcL RBC 4.30 (3.59-5.38) M/mcL Hgb 13.4 (11.2-15.7) g/dL Hct 40.4 (34.1-44.9) % MCV 94.0 (80.0-100.0) fL MCH 31.2 (26.0-34.0) pg MCHC 33.2 (31.0-36.0) g/dL RDW 13.4 (11.5-14.5) % Plt Count 239 (140-440) K/mcL MPV 9.3 (7.4-10.4) fL Gran % 97.3 H (38.0-78.0) % Lymph % (Auto) 1.7 L (15.5-49.0) % [place] % (Auto) 0.3 L (1.0-12.0) % Eos % (Auto) 0.5 (0.0-7.0) % Baso % (Auto) 0.2 (0.0-2.0) % Gran # 14.69 H (1.80-8.00) K/mcL Lymph # (Auto) 0.26 L (1.50-4.80) K/mcL [place] # (Auto) 0.05 L (0.10-0.90) K/mcL Eos # (Auto) 0.08 (0.00-0.70) K/mcL Baso # (Auto) 0.03 (0.00-0.30) K/mcL VBG Lactic Acid 2.0 (0.5-2.0) mmol/L Sodium 138 (133-145) mmol/L Potassium 4.7 (3.3-5.1) mmol/L Chloride 102 (96-108) mmol/L Carbon Dioxide 21 L (22-30) mmol/L Anion Gap 15.0 (8-16) BUN 51 H (8-23) mg/dl Creatinine 1.8 H (0.6-1.1) mg/dl GFR Calculation 27 Glucose 148 H (70-105) mg/dL Calcium 10.1 (8.6-10.4) mg/dl Magnesium 1.9 (1.6-2.5) mg/dL Total Bilirubin 0.8 (0.0-1.0) mg/dL AST 23 (0-37) U/l ALT 14 (0-40) U/l Alkaline Phosphatase 88 (39-117) U/L Troponin T (0-0.03) ng/ml NT-Pro-B Natriuret Pep 597.7 H (0-450) pg/ml Total Protein 7.2 (5.9-8.4) gm/dL Albumin 4.3 (3.2-5.2) gm/dL Globulin 2.9 (2.2-3.7) gm/dL Albumin/Globulin Ratio 1.5 (1.0-2.3) Lipase 23 (7-60) U/L Procalcitonin (<0.10) ng/mL Urine Color Urine Appearance Urine pH (5.0-9.0) Ur Specific [place] (1.000-1.035) Urine Protein (NEG) mg/dL Urine Glucose (UA) (NEG) mg/dL Urine Ketones (NEG) mg/dL Urine Occult Blood (<0.03) mg/dL Urine Nitrate (NEG) Urine Bilirubin (NEG) mg/dL Urine Urobilinogen (NEG) mg/dL Ur Leukocyte Esterase (NEG) /uL Urine RBC (0-1) /hpf Urine WBC (0-4) /hpf Ur Squamous Epith Cells (0-4) /hpf Ur Transition Epith Cell (0-2) /hpf Urine Bacteria (0) /hpf Urine Mucus (0) /hpf Ur Culture Indicated? 06/06/19 06/06/19 06/06/19 Range/Units 09:35 09:35 10:53 WBC (4.50-11.00) K/mcL RBC (3.59-5.38) M/mcL Hgb (11.2-15.7) g/dL Hct (34.1-44.9) % MCV (80.0-100.0) fL MCH (26.0-34.0) pg MCHC (31.0-36.0) g/dL RDW (11.5-14.5) % Plt Count (140-440) K/mcL MPV (7.4-10.4) fL Gran % (38.0-78.0) % Lymph % (Auto) (15.5-49.0) % [place] % (Auto) (1.0-12.0) % Eos % (Auto) (0.0-7.0) % Baso % (Auto) (0.0-2.0) % Gran # (1.80-8.00) K/mcL Lymph # (Auto) (1.50-4.80) K/mcL [place] # (Auto) (0.10-0.90) K/mcL Eos # (Auto) (0.00-0.70) K/mcL Baso # (Auto) (0.00-0.30) K/mcL VBG Lactic Acid (0.5-2.0) mmol/L Sodium (133-145) mmol/L Potassium (3.3-5.1) mmol/L Chloride (96-108) mmol/L Carbon Dioxide (22-30) mmol/L Anion Gap (8-16) BUN (8-23) mg/dl Creatinine (0.6-1.1) mg/dl GFR Calculation Glucose (70-105) mg/dL Calcium (8.6-10.4) mg/dl Magnesium (1.6-2.5) mg/dL Total Bilirubin (0.0-1.0) mg/dL AST (0-37) U/l ALT (0-40) U/l Alkaline Phosphatase (39-117) U/L Troponin T < 0.01 (0-0.03) ng/ml NT-Pro-B Natriuret Pep (0-450) pg/ml Total Protein (5.9-8.4) gm/dL Albumin (3.2-5.2) gm/dL Globulin (2.2-3.7) gm/dL Albumin/Globulin Ratio (1.0-2.3) Lipase (7-60) U/L Procalcitonin 0.64 (<0.10) ng/mL Urine Color Yellow Urine Appearance Clear Urine pH 8.5 (5.0-9.0) Ur Specific [place] 1.015 (1.000-1.035) Urine Protein Neg (NEG) mg/dL Urine Glucose (UA) Norm (NEG) mg/dL Urine Ketones Neg (NEG) mg/dL Urine Occult Blood 2+ (moderate) (<0.03) mg/dL Urine Nitrate Neg (NEG) Urine Bilirubin Neg (NEG) mg/dL Urine Urobilinogen Norm (NEG) mg/dL Ur Leukocyte Esterase 1+ (small) (NEG) /uL Urine RBC 4 H (0-1) /hpf Urine WBC 12 H (0-4) /hpf Ur Squamous Epith Cells 9 H (0-4) /hpf Ur Transition Epith Cell < 1 (0-2) /hpf Urine Bacteria Few A (0) /hpf Urine Mucus Few (0) /hpf Ur Culture Indicated? No ABG shows pH of 7.40 when temperature adjusted this is 7.37 PCO2 of 45 and PO2 of 129 on 2 L nasal cannula oxygen - Radiology Data Radiology results reviewed: Yes I reviewed the patient's radiology results. Chest x-ray shows no infiltrate but stigmata of COPD - EKG Data EKG #1 EKG attestation: Yes I reviewed and interpreted this EKG. EKG results narrative: EKG shows sinus tachycardia with inferior leads minimal ST depression, likely from heart strain from COPD. Disposition Pt seen by EMISSIONS INSPECTOR/PA only: No Clinical Impression: COPD exacerbation, Chronic kidney disease, stage 3 Fever Qualifiers: Fever type: unspecified Qualified Code(s): R50.9 - Fever, unspecified Summary: Febrile female with emphysema. Influenza swab was negative. Chest x-ray just showed COPD type changes with overinflation flattening of the diaphragm etc. What is causing the COPD exacerbation. Suspect respiratory virus. Ordered resp iratory panel and COVID virus testing. Routine laboratory. Start IM Solu- Medrol as well as MDI albuterol and Spiriva. Tylenol given for fever and IV fluids ordered Laboratory shows leukocytosis of 15 pro calcitonin is elevated and suggest bacterial infection. I had already ordered blood cultures and so I added Zosyn. I reevaluated the patient and her breathing was much improved and her blood pressure had gone to a normal level. Tachycardia and tachypnea improved. She was feeling better but was agreeable with coming in the hospital for further evaluation and care. I discussed the case with Dr. Norwood, our hospitalist, who agreed to accept the patient Disposition: Xfer As Inpt ([facility]) Condition: Fair Referrals: eDborah Ramsay ARNP [Primary Care Provider] -
[2019-06-06] MEDS ORDERED: ALBUTEROL SULFATE 200 PUFF INHALER INH PRN (09:36)
[2019-06-06] MEDS ORDERED: methylPREDNISolone SOD SUCC 125 MG/2 ML VIAL IV ONE (10:05)
[2019-06-06 10:14] LABS: Basophils # (Auto) 0.03 K/mcL (0.00-0.30); Basophils % (Auto) 0.2 % (0.0-2.0); Eosinophils # (Auto) 0.08 K/mcL (0.00-0.70); Eosinophils % (Auto) 0.5 % (0.0-7.0); Granulocytes % (Auto) 97.3 % (38.0-78.0); Hematocrit 40.4 % (34.1-44.9); Hemoglobin 13.4 g/dL (11.2-15.7); Lymphocytes # (Auto) 0.26 K/mcL (1.50-4.80); Lymphocytes % (Auto) 1.7 % (15.5-49.0); Mean Corpuscular HGB Conc 33.2 g/dL (31.0-36.0); Mean Platelet Volume 9.3 fL (7.4-10.4); Monocytes # (Auto) 0.05 K/mcL (0.10-0.90); Monocytes % (Auto) 0.3 % (1.0-12.0); Platelet Count 239 K/mcL (140-440); Red Cell Distribution Width 13.4 % (11.5-14.5); WBC 15.1 K/mcL (4.50-11.00)
[2019-06-06 10:31] LABS: proBNP 597.7 pg/ml (0-450)
[2019-06-06 10:33] LABS: ALT/SGPT 14 U/l (0-40); AST/SGOT 23 U/l (0-37); Albumin 4.3 gm/dL (3.2-5.2); Albumin/Globulin Ratio 1.5 (1.0-2.3); Alkaline Phosphatase 88 U/L (39-117); Bilirubin,Total 0.8 mg/dL (0.0-1.0); Blood Urea Nitrogen 51 mg/dl (8-23); Calcium 10.1 mg/dl (8.6-10.4); Carbon Dioxide 21 mmol/L (22-30); Chloride 102 mmol/L (96-108); Globulin 2.9 gm/dL (2.2-3.7); Glomerular Filtration Rate 27; Glucose 148 mg/dL (70-105)
[2019-06-06] MEDS ORDERED: PIPERACILLIN SODIUM/TAZOBACTAM 3.375 GM in DEXTROSE 5% IN WATER 50 ML IV ONE (10:51)
[2019-06-06 11:29] LABS: Appearance,Urine CLEAR; Bacteria,Urine FEW /hpf (0); Bilirubin,Urine NEG (NEG); Color,Urine YELLOW; Culture Indicated,Urine NO; Glucose,Urine (UA) NORM (NEG); Ketones,Urine NEG (NEG); Leukocyte Esterase,Urine 1+ (SMALL) /uL (NEG); Mucus,Urine FEW /hpf (0); Nitrate,Urine NEG (NEG); PH,Urine 8.5 (5.0-9.0); Protein,Urine NEG (NEG); Specific Gravity,Urine 1.015 (1.000-1.035); Urine Blood 2+ (MODERATE) mg/dL (<0.03); Urine RBC 4 /hpf (0-1); Urine Squamous Epithelial Cell 9 /hpf (0-4); Urine Transitional Epi Cells < 1 /hpf (0-2); Urine WBC 12 /hpf (0-4); Urobilinogen,Urine NORM (NEG)
--- NOTE | 2019-06-06 14:02 | Internal Med History&Physical ---
Medical - H&P: [facility] Patient information: Note initiated : 06/06/19 at 1:55 pm Service Date, if different from initiated Date: [] Patient: Ciarra Manzano 78 y/o F admitted on for Fever. Chief Complaint: [] History of present illness: Ms. Manzano is a 78 year old F Does the ED with fever and chills with a temperature of 102.9 at home. She has had nausea and had vomited yesterday only retching today. She denies shortness of breath. She denies any coughing either. However her says she has a chronic cough and feels it is worsening. Report of oxygen saturations the 80s when EMS arrived however she does wear oxygen at home and is reported that they placed 2 L on her. She did report some flank pain yesterday which is resolved. She does see Dr. Dasilva for urology issues. And she saw him last week and had a KUB which she says is unremarkable. Chest x-ray unremarkable. Per ED staff she had some wheezing when she first arrived and received nebulizers. She is febrile in the ED and tachycardic. UA unremarkable for infectious type markers, did have a little bit of blood as well as WBCs but also had squamous cells. Creatinine noted to be elevated. No obvious source of fever. However procalcitonin was elevated. And with concern with respiratory suspect this to be etiology however still unclear. Also reported some headache this morning. Review of Systems: denies chest or abdominal pain/diarrhea. 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) GERD (gastroesophageal reflux disease) (Chronic) Hypercholesterolemia (Chronic) Backache, unspecified (Chronic) Renal insufficiency, mild (Chronic) Rib pain on left side (Chronic) Incontinence (Chronic) Urethral cancer (Chronic) Osteopenia (Chronic) Heartburn (Chronic) Tobacco user (Chronic) Malignant neoplasm of bladder (Chronic) Actinic keratosis (Chronic) Hearing loss (Chronic) Urinary incontinence (Chronic) PVD (peripheral vascular disease) (Chronic) Chronic kidney disease, stage 3 (Chronic) Other emphysema (Chronic) KAUFFMAN (dyspnea on exertion) (Chronic) Past Surgical History (Last Reviewed 05/28/19 @ 14:35 by Josephine Miranda RN) H/O lithotripsy (Chronic) History of bilateral salpingo-oophorectomy (BSO) (Chronic ~2003) History of total abdominal hysterectomy (Chronic ~2003) History of cholecystectomy (Chronic) H/O tubal ligation (Chronic ~2003) History of surgery (Acute) S/P appendectomy (Acute) History of bladder replacement (Chronic) History of tonsillectomy and adenoidectomy (Chronic) Family History (Last Reviewed 05/28/19 @ 14:35 by Josephine Miranda RN) Unknown Family history unknown, she was adopted Social History (Last Updated 05/28/19 @ 14:44 by Elroy Dasilva MD) Quit smoking 2 years ago Uses alcohol rarely Ambulates independently Lives at home with her Medical - H&P: Meds Home Medications Medication Instructions Recorded Confirmed Type albuterol sulfate 90 mcg/actuation 2 puff INHALATION Q6H PRN 03/13/18 06/06/19 History aerosol inhaler ferrous sulfate 27 mg iron tablet 27 mg PO DAILY tab 04/29/18 06/06/19 History cholecalciferol (vitamin D3) 25 1,000 unit PO DAILY cap 11/11/18 06/06/19 History mcg (1,000 unit) capsule potassium citrate 10 mEq (1,080 10 meq PO TID #90 tab 12/30/18 06/06/19 Rx mg) tablet,extended release hydrocodone 10 mg-acetaminophen 1 tab PO Q6H PRN #20 tab 05/28/19 06/06/19 Rx 325 mg tablet Allergies Allergy/AdvReac Type Severity Reaction Status Date / Time doxycycline AdvReac Intermediate Itching Verified 05/28/19 14:33 Medical - H&P: Exam - Constitutional Vitals: Temp Pulse Resp BP Pulse Ox 98.3 F 95 H 22 119/54 94 06/06/19 13:33 06/06/19 13:27 06/06/19 13:27 06/06/19 13:27 06/06/19 13:27 Exam: General: Alert, Awake, No acute Distress Eyes/N/T: EOMI, PERRL, dry MM Head/Neck: neck supple, normocephalic atraumatic CV: RRR, No murmurs, normal s1/s2 Pulm: Diminished b/l, no wheezing, abd: soft, nontender, +BS x4 Ext: no clubbing/cyanosis/edema Neuro: Alert, no focal deficits, moves all extremities, CN 2-12 grossly intact, symmetrical strength b/l upper/lower, sensations intact b/l upper/lower Skin: warm/dry Medical - H&P: Reslt - Labs CBC & Chem 7: 06/06/19 09:34 06/06/19 09:34 Labs: Short CBC 06/06/19 Range/Units 09:34 WBC 15.1 H (4.50-11.00) K/mcL Hgb 13.4 (11.2-15.7) g/dL Hct 40.4 (34.1-44.9) % Plt Count 239 (140-440) K/mcL BMP 06/06/19 09:34 Sodium 138 Potassium 4.7 Chloride 102 Carbon Dioxide 21 L BUN 51 H Creatinine 1.8 H Glucose 148 H Calcium 10.1 Cardiac Enzymes 06/06/19 Range/Units 09:35 Troponin T < 0.01 (0-0.03) ng/ml Liver Function 06/06/19 Range/Units 09:34 Total Bilirubin 0.8 (0.0-1.0) mg/dL AST 23 (0-37) U/l ALT 14 (0-40) U/l Alkaline Phosphatase 88 (39-117) U/L Albumin 4.3 (3.2-5.2) gm/dL Urine 06/06/19 Range/Units 10:53 Urine Color Yellow Urine Appearance Clear Urine pH 8.5 (5.0-9.0) Ur Specific [place] 1.015 (1.000-1.035) Urine Protein Neg (NEG) mg/dL Urine Glucose (UA) Norm (NEG) mg/dL Medical - H&P: A/P - Narrative A/P Narrative: A: *AECOPD (on 2L NC @home): *Fever/leukocytosis: source Pulm vs other, always potential although UA unimpressive *AUBREY on CKD III: *h/o of nephrolithiasis and bladder CA s/p radical cystectomy and ileal conduit: follows with Dr. Dasilva * P: -steroids/IH's -IS -RVP/COVID pending -Empiric abx, pending BC, f/u PCT -renal u/s pending r/o obstruction -IVF's f/u renal fxn - -ppx: heparin DNR
[2019-06-06] MEDS ORDERED: IPRATROPIUM/ALBUTEROL 3 ML AMPUL.NEB NEB PRN (15:35)
[2019-06-06] MEDS ORDERED: ACETAMINOPHEN 325 MG TABLET PO PRN (15:35)
[2019-06-06] MEDS ORDERED: 0.9 % SODIUM CHLORIDE 1,000 ML IV SCH (15:35)
[2019-06-06] MEDS ORDERED: POTASSIUM CHLORIDE 40 MEQ in DEXTROSE 5% IN WATER 500 ML IV PRN (15:35)
[2019-06-06] MEDS ORDERED: POTASSIUM CHLORIDE 20 MEQ TABLET PO PRN ×2 (15:35)
[2019-06-06] MEDS ORDERED: MAGNESIUM SULFATE 2 GM/50 ML BAG IV PRN (15:35)
[2019-06-06] MEDS ORDERED: SENNOSIDES 1 TABLET PO PRN (15:35)
[2019-06-06] MEDS ORDERED: ONDANSETRON 4 MG/2 ML VIAL IV PRN (15:35)
[2019-06-06] MEDS ORDERED: POLYETHYLENE GLYCOL 3350 17 GM PACKET PO PRN (15:35)
[2019-06-06] MEDS ORDERED: IPRATROPIUM/ALBUTEROL 3 ML AMPUL.NEB NEB SCH (15:35)
[2019-06-06 16:24] LABS: Band Neutrophils % 2 % (0-10); Basophils % (Manual) 1 % (0-2); Platelet Estimate NORMAL (NORMAL); RBC Morphology NORMAL (NORMAL); Reactive Lymphocytes 1 % (0-2); Segmented Neutrophils % 96 % (38-78)
[2019-06-06] MEDS: POTASSIUM CITRATE 10 MEQ TAB.XL.24H PO SCH ×2 (16:35→21:24)
[2019-06-06] MEDS: PIPERACILLIN SODIUM/TAZOBACTAM 2.25 GM in DEXTROSE 5% IN WATER 50 ML IV SCH ×2 (17:42→23:47)
[2019-06-06] MEDS: predniSONE 20 MG TABLET PO SCH (17:42)
[2019-06-06] MEDS: IPRATROPIUM/ALBUTEROL SULFATE 1 PUFF INHALER INH SCH (20:48)
[2019-06-06] MEDS: DOCUSATE SODIUM 100 MG CAPSULE PO SCH (20:48)
[2019-06-06] MEDS: 0.9 % SODIUM CHLORIDE 10 ML SYRINGE IV SCH (20:49)
[2019-06-06] MEDS: HEPARIN 5,000 UNIT/ML VIAL SQ SCH (20:49)
[2019-06-07] MEDS: 0.9 % SODIUM CHLORIDE 10 ML SYRINGE IV SCH ×3 (05:09→20:15)
[2019-06-07] MEDS: PIPERACILLIN SODIUM/TAZOBACTAM 2.25 GM in DEXTROSE 5% IN WATER 50 ML IV SCH ×4 (05:09→23:51)
[2019-06-07] MEDS ORDERED: VANCOMYCIN PER PHARMACY IV SCH (06:13)
[2019-06-07 07:09] LABS: Bilirubin,Direct < 0.2 mg/dL (0.0-0.3)
--- NOTE | 2019-06-07 07:10 | Ultrasound Report ---
INDICATION: History of renal calculi and hydronephrosis TECHNIQUE: Petersen scale and color flow Doppler spectral imaging COMPARISON: CT scan dated 07/15/2018 FINDINGS: Right kidney measures 9.3 x 5.1 x 4.6 cm. There is mild right hydronephrosis. There is an inferior pole calculus which measures 1.5 x 1.7 x 1.2 cm. This is nonobstructive. No other renal calculi identified. There is a 1.3 cm mid pole cyst. No solid mass. Mild hydronephrosis is improved since 07/15/2018. Left kidney measures 9.9 x 4.4 x 4.3 cm. There are benign cysts which measure 1.9 and 2.0 cm maximally. There are 2 mid pole nonobstructing calculi. These measure 10 mm and 10 mm in size. No left hydronephrosis. No solid left renal mass Urinary bladder is not evaluated IMPRESSION: 1. Mild right hydronephrosis, improved since 07/15/2018 2. No solid renal mass 3. Bilateral nonobstructing calculi Interpreted and Authenticated by: Long Patterson 06/07/19
[2019-06-07 07:22] LABS: ALT/SGPT 15 U/l (0-40); AST/SGOT 27 U/l (0-37); Albumin 3.5 gm/dL (3.2-5.2); Albumin/Globulin Ratio 1.2 (1.0-2.3); Alkaline Phosphatase 66 U/L (39-117); Bilirubin,Total 0.5 mg/dL (0.0-1.0); Blood Urea Nitrogen 48 mg/dl (8-23); Calcium 8.9 mg/dl (8.6-10.4); Carbon Dioxide 18 mmol/L (22-30); Chloride 109 mmol/L (96-108); Globulin 2.9 gm/dL (2.2-3.7); Glomerular Filtration Rate 29; Glucose 125 mg/dL (70-105); Lactate Dehydrogenase 478 U/L (94-250); Phosphorous 3.1 mg/dL (2.7-4.5); Triglycerides 138 mg/dl (<150); Uric Acid 5.5 mg/dL (2.5-8.0)
[2019-06-07 07:48] LABS: Basophils # (Auto) 0.03 K/mcL (0.00-0.30); Basophils % (Auto) 0.1 % (0.0-2.0); Eosinophils # (Auto) 0.01 K/mcL (0.00-0.70); Eosinophils % (Auto) 0 % (0.0-7.0); Granulocytes % (Auto) 91.8 % (38.0-78.0); Hematocrit 34.3 % (34.1-44.9); Hemoglobin 11.2 g/dL (11.2-15.7); Lymphocytes # (Auto) 0.65 K/mcL (1.50-4.80); Lymphocytes % (Auto) 2.6 % (15.5-49.0); Mean Cell Volume 95.3 fL (80.0-100.0); Mean Corpuscular HGB Conc 32.7 g/dL (31.0-36.0); Mean Platelet Volume 9.8 fL (7.4-10.4); Monocytes # (Auto) 1.39 K/mcL (0.10-0.90); Monocytes % (Auto) 5.5 % (1.0-12.0); Platelet Count 197 K/mcL (140-440); Red Cell Distribution Width 13.8 % (11.5-14.5); WBC 25.3 K/mcL (4.50-11.00)
--- NOTE | 2019-06-07 08:05 | Internal Med Progress Note ---
Medical - PN: Subj Patient information: Note initiated : 06/07/19 at 8:05 am Service Date, if different from initiated Date: [] Patient: Ciarra Manzano 78 y/o F admitted on 06/06/19 for Fever. Chief Complaint: [] Interval history: Ms. Manzano is a 78 year old F Does the ED with fever and chills with a temperature of 102.9 at home. She has had nausea and had vomited yesterday only retching today. She denies shortness of breath. She denies any coughing either. However her says she has a chronic cough and feels it is worsening. Report of oxygen saturations the 80s when EMS arrived however she does wear oxygen at home and is reported that they placed 2 L on her. She did report some flank pain yesterday which is resolved. She does see Dr. Dasilva for urology issues. And she saw him last week and had a KUB which she says is unremarkable. Chest x-ray unremarkable. Per ED staff she had some wheezing when she first arrived and received nebulizers. She is febrile in the ED and tachycardic. UA unremarkable for infectious type markers, did have a little bit of blood as well as WBCs but also had squamous cells. Creatinine noted to be elevated. No obvious source of fever. However procalcitonin was elevated. And with concern with respiratory suspect this to be etiology however still unclear. Also reported some headache this morning. 06/06 Feeling better. Slept well. No new complaints. Denies cough today. Has chronic shortness of breath at baseline. Feeling pretty good. No pains chest or abdomen issues. Review of Systems: denies headache/fever/chills/nausea/vomiting/chest or abdominal pain/diarrhea. Otherwise see above. - Constitutional Vitals: Vital Signs Temp Pulse Resp BP Pulse Ox 98.0 F 85 19 126/60 97 06/07/19 07:18 06/07/19 07:18 06/07/19 07:18 06/07/19 07:18 06/07/19 07:18 Period Temp Pulse Resp BP Sys/Caballero Pulse Ox Last 24 Hr 97.5 F-102 F 83-125 16-31 97-182/44-145 92-100 Intake and Output 06/06/19 06/07/19 06/07/19 21:59 05:59 13:59 Intake Total 530 530 Output Total 2 1 Balance 528 529 Weight 63.095 kg Intake & Output: Intake & Output 06/06/19 06/07/19 06/07/19 21:59 05:59 13:59 Intake Total 530 530 Output Total 2 1 Balance 528 529 Weight 63.095 kg Intake: IV 50 50 Zosyn 2.25 gm In Dextrose 5% in 50 50 Water 50 ml @ 100 mls/hr IV Q6H [facility] Rx#:[id number] Oral 480 480 Output: # of times incontinent of urine 2 1 Other: Meal Dinner Percent of Meal Consumed 75% Urine Odor Strong Strong # Voids 1 # Bowel Movements 0 Exam: General: Alert, Awake, No acute Distress Eyes/N/T: EOMI, Head/Neck: neck supple, CV: RRR, No murmurs, Pulm: Diminished b/l, no wheezing, abd: soft, nontender, +BS x4 Ext: no clubbing/cyanosis/edema Neuro: Alert, no focal deficits, moves all extremities, Skin: warm/dry Medical - PN: Obj Da - Labs CBC & Chem 7: 06/07/19 07:12 06/07/19 05:15 Labs: Abnormal Lab Results 06/07/19 06/07/19 06/06/19 07:12 05:15 10:53 WBC 25.3 H Gran % 91.8 H Lymph % (Auto) 2.6 L [place] % (Auto) Gran # 23.26 H Lymph # (Auto) 0.65 L [place] # (Auto) 1.39 H Seg Neutrophils % Potassium 5.4 H Chloride 109 H Carbon Dioxide 18 L BUN 48 H Creatinine 1.7 H Glucose 125 H Lactate Dehydrogenase 478 H NT-Pro-B Natriuret Pep Urine RBC 4 H Urine WBC 12 H Ur Squamous Epith Cells 9 H Urine Bacteria Few A 06/06/19 06/06/19 06/06/19 09:34 09:34 09:34 WBC 15.1 H Gran % 97.3 H Lymph % (Auto) 1.7 L [place] % (Auto) 0.3 L Gran # 14.69 H Lymph # (Auto) 0.26 L [place] # (Auto) 0.05 L Seg Neutrophils % 96 H Potassium Chloride Carbon Dioxide 21 L BUN 51 H Creatinine 1.8 H Glucose 148 H Lactate Dehydrogenase NT-Pro-B Natriuret Pep 597.7 H Urine RBC Urine WBC Ur Squamous Epith Cells Urine Bacteria Meds: Medications Acetaminophen (Tylenol) 650 mg PO Q6HP PRN PRN Reason: PAIN/FEVER > 101 Albuterol/Ipratropium (Combivent) 2 puff INH TID [facility] Last Admin: 06/06/19 20:48 Dose: 2 puff Documented by: Docusate Sodium (Colace) 100 mg PO BID [facility] Last Admin: 06/06/19 20:48 Dose: Not Given Documented by: Heparin Sodium (Porcine) (Heparin) 5,000 unit SQ Q12 [facility] Last Admin: 06/06/19 20:49 Dose: 5,000 unit Documented by: Potassium Chloride 40 meq/ (Dextrose) 520 mls @ 130 mls/hr IV UD PRN PRN Reason: Potassium < 3 Magnesium Sulfate (Magnesium Sulfate) 2 gm in 50 mls @ 50 mls/hr IV UD PRN PRN Reason: Magnesium </= 1.6 Piperacillin Sod/Tazobactam (Sod 2.25 gm/ Dextrose) 50 mls @ 100 mls/hr IV Q6H [facility]; Protocol Last Admin: 06/07/19 05:09 Dose: 100 mls/hr Documented by: Ondansetron HCl (Zofran) 4 mg IV Q4HP PRN PRN Reason: Nausea And Vomiting Polyethylene Glycol (Miralax) 17 gm PO DAILYP PRN PRN Reason: Constipation Potassium Chloride (Kdur) 40 meq PO UD PRN PRN Reason: Potssium is 3-3.5 Potassium Chloride (Kdur) 40 meq PO UD PRN PRN Reason: Potassium < 3 Potassium Citrate (Potassium Citrate) 10 meq PO TID [facility] Last Admin: 06/06/19 21:24 Dose: 10 meq Documented by: Prednisone (Prednisone) 40 mg PO BIDCC [facility] Last Admin: 06/06/19 17:42 Dose: 40 mg Documented by: Senna (Senokot) 2 tab PO DAILYP PRN PRN Reason: Constipation Sodium Chloride (Saline Flush) 10 ml IV Q8 [facility] Last Admin: 06/07/19 05:09 Dose: Not Given Documented by: Vancomycin HCl (Vancomycin Per Pharmacy) 1 order IV ONCE ONE; Protocol Stop: 06/07/19 06:14 Medical - PN: A/P - Time Spent With Patient Total time spent is greater than 50% in coordination of care (as documented) at patient's floor/unit and/or counseling patient: - Narrative A/P Narrative: A: *AECOPD (on 2L NC @home), mild: -RVP negative *Fever/leukocytosis: source Pulm vs other, always potential although UA unimpressive -afebrile o/n -PCT elevated -Not toxic appearing *GPC in anaerobic 1 bottle of set: ?contaminate vs *AUBREY on CKD III: -renal u/s showing mild right hydronephrosis *h/o of nephrolithiasis and bladder CA s/p radical cystectomy and ileal conduit: follows with Dr. Dasilva -renal u/s showing mild right hydronephrosis and b/l nonobstructing calculi *Hyperkalemia, mild: P: -steroids/IH's -IS -COVID pending -cont Vanc/Zosyn, pending BC, f/u PCT -IVF's -d/c home potassium supp -consider CT a/p evaluate for source of infection once covid test back -ppx: heparin DNR Medical - PN: Qual - VTE Deep Vein Thrombosis/Pulmonary Embolism Present on Admission: No
[2019-06-07] MEDS ORDERED: VANCOMYCIN 1,000 MG in 0.9 % SODIUM CHLORIDE 250 ML IV ONE (08:15)
[2019-06-07 08:59] LABS: Band Neutrophils % 6 % (0-10); Lymphocytes % 6 % (15-49); Monocytes % (Manual) 7 % (1-12); Platelet Estimate NORMAL (NORMAL); RBC Morphology NORMAL (NORMAL); Segmented Neutrophils % 81 % (38-78)
[2019-06-07] MEDS: IPRATROPIUM/ALBUTEROL SULFATE 1 PUFF INHALER INH SCH ×3 (09:00→20:14)
[2019-06-07] MEDS ORDERED: TIOTROPIUM BROMIDE 18 MCG INHALANT INH SCH (09:00)
[2019-06-07] MEDS ORDERED: ALBUTEROL SULFATE 200 PUFF INHALER INH SCH (09:00)
[2019-06-07] MEDS: DOCUSATE SODIUM 100 MG CAPSULE PO SCH ×2 (09:43→20:14)
[2019-06-07] MEDS: HEPARIN 5,000 UNIT/ML VIAL SQ SCH ×2 (09:50→20:15)
[2019-06-07] MEDS: predniSONE 20 MG TABLET PO SCH ×2 (09:50→17:11)
[2019-06-07] MEDS ORDERED: hydrALAZINE 20 MG/ML VIAL IV PRN (19:12)
[2019-06-07] MEDS: cloNIDine HCL 0.1 MG TABLET PO PRN (19:20)
[2019-06-08] MEDS: cloNIDine HCL 0.1 MG TABLET PO PRN ×2 (05:16→19:27)
[2019-06-08] MEDS: 0.9 % SODIUM CHLORIDE 10 ML SYRINGE IV SCH ×3 (05:16→23:52)
[2019-06-08] MEDS: PIPERACILLIN SODIUM/TAZOBACTAM 2.25 GM in DEXTROSE 5% IN WATER 50 ML IV SCH ×4 (05:17→23:51)
[2019-06-08 06:30] LABS: Mean Cell Volume 95.2 fL (80.0-100.0); Mean Corpuscular HGB Conc 32.4 g/dL (31.0-36.0); Mean Platelet Volume 10.1 fL (7.4-10.4); Platelet Count 213 K/mcL (140-440); RBC 3.57 M/mcL (3.59-5.38); WBC 20.9 K/mcL (4.50-11.00)
[2019-06-08 06:58] LABS: Bilirubin,Direct < 0.2 mg/dL (0.0-0.3)
[2019-06-08 07:06] LABS: Vancomycin,Random 8.8 ug/mL
[2019-06-08 07:08] LABS: ALT/SGPT 12 U/l (0-40); AST/SGOT 19 U/l (0-37); Albumin 3.5 gm/dL (3.2-5.2); Albumin/Globulin Ratio 1.3 (1.0-2.3); Alkaline Phosphatase 69 U/L (39-117); Bilirubin,Total 0.3 mg/dL (0.0-1.0); Blood Urea Nitrogen 54 mg/dl (8-23); Calcium 8.9 mg/dl (8.6-10.4); Carbon Dioxide 18 mmol/L (22-30); Chloride 112 mmol/L (96-108); Globulin 2.8 gm/dL (2.2-3.7); Glomerular Filtration Rate 27; Glucose 132 mg/dL (70-105); Lactate Dehydrogenase 238 U/L (94-250); Phosphorous 2.9 mg/dL (2.7-4.5); Triglycerides 99 mg/dl (<150); Uric Acid 4.7 mg/dL (2.5-8.0)
[2019-06-08 07:19] LABS: Lymphocytes % 4 % (15-49); Monocytes % (Manual) 2 % (1-12); Platelet Estimate NORMAL (NORMAL); RBC Morphology NORMAL (NORMAL); Segmented Neutrophils % 94 % (38-78)
--- NOTE | 2019-06-08 08:09 | Internal Med Progress Note ---
Medical - PN: Subj Patient information: Note initiated : 06/08/19 at 8:03 am Service Date, if different from initiated Date: [] Patient: Ciarra Manzano 78 y/o F admitted on 06/06/19 for Fever. Chief Complaint: [] Interval history: Ms. Manzano is a 78 year old F Does the ED with fever and chills with a temperature of 102.9 at home. She has had nausea and had vomited yesterday only retching today. She denies shortness of breath. She denies any coughing either. However her says she has a chronic cough and feels it is worsening. Report of oxygen saturations the 80s when EMS arrived however she does wear oxygen at home and is reported that they placed 2 L on her. She did report some flank pain yesterday which is resolved. She does see Dr. Dasilva for urology issues. And she saw him last week and had a KUB which she says is unremarkable. Chest x-ray unremarkable. Per ED staff she had some wheezing when she first arrived and received nebulizers. She is febrile in the ED and tachycardic. UA unremarkable for infectious type markers, did have a little bit of blood as well as WBCs but also had squamous cells. Creatinine noted to be elevated. No obvious source of fever. However procalcitonin was elevated. And with concern with respiratory suspect this to be etiology however still unclear. Also reported some headache this morning. 06/06 Feeling better. Slept well. No new complaints. Denies cough today. Has chronic shortness of breath at baseline. Feeling pretty good. No pains chest or abdomen issues. 06/07 Sleeping well. No new complaints. Blood cultures growing gram-positive cocci and gram-negative bacillus. Repeat cultures drawn this morning. Patient is afebrile. White blood cell count improving. Review of Systems: denies headache/fever/chills/nausea/vomiting/chest or abdominal pain/diarrhea. Otherwise see above. - Constitutional Vitals: Vital Signs Temp Pulse Resp BP Pulse Ox 98.4 F 83 24 H 152/70 98 06/08/19 05:04 06/07/19 18:25 06/08/19 05:04 06/08/19 05:04 06/08/19 05:04 Period Temp Pulse Resp BP Sys/Caballero Pulse Ox Last 24 Hr 97.2 F-99.3 F 83 16-24 113-181/52-87 98-100 Intake and Output 06/07/19 06/08/19 06/08/19 21:59 05:59 13:59 Intake Total 50 530 50 Output Total 1 2 Balance 49 528 50 Weight 65.499 kg Intake & Output: Intake & Output 06/07/19 06/08/19 06/08/19 21:59 05:59 13:59 Intake Total 50 530 50 Output Total 1 2 Balance 49 528 50 Weight 65.499 kg Intake: IV 50 50 50 Zosyn 2.25 gm In Dextrose 5% in 50 50 50 Water 50 ml @ 100 mls/hr IV Q6H [facility] Rx#:[id number] Oral 480 Output: # of times incontinent of urine 1 2 Other: Meal Lunch Percent of Meal Consumed 75% Feeding Ability Independent # Bowel Movements 0 # of times incontinent of 0 Bowels Exam: General: Alert, Awake, No acute Distress Eyes/N/T: EOMI, Head/Neck: neck supple, CV: RRR, No murmurs, Pulm: no wheezing/rhonchi abd: soft, nontender, +BS x4 Ext: no clubbing/cyanosis/edema Neuro: Alert, no focal deficits, moves all extremities, Skin: warm/dry Medical - PN: Obj Da - Labs CBC & Chem 7: 06/08/19 05:15 06/08/19 05:15 Labs: Abnormal Lab Results 06/08/19 06/08/19 06/07/19 05:15 05:15 07:12 WBC 20.9 H RBC 3.57 L Hgb 11.0 L Hct 34.0 L Gran % Lymph % (Auto) [place] % (Auto) Gran # Lymph # (Auto) [place] # (Auto) Seg Neutrophils % 94 H 81 H Lymphocytes % 4 L 6 L Potassium Chloride 112 H Carbon Dioxide 18 L BUN 54 H Creatinine 1.8 H Glucose 132 H Lactate Dehydrogenase NT-Pro-B Natriuret Pep Urine RBC Urine WBC Ur Squamous Epith Cells Urine Bacteria 06/07/19 06/07/19 06/06/19 07:12 05:15 10:53 WBC 25.3 H RBC Hgb Hct Gran % 91.8 H Lymph % (Auto) 2.6 L [place] % (Auto) Gran # 23.26 H Lymph # (Auto) 0.65 L [place] # (Auto) 1.39 H Seg Neutrophils % Lymphocytes % Potassium 5.4 H Chloride 109 H Carbon Dioxide 18 L BUN 48 H Creatinine 1.7 H Glucose 125 H Lactate Dehydrogenase 478 H NT-Pro-B Natriuret Pep Urine RBC 4 H Urine WBC 12 H Ur Squamous Epith Cells 9 H Urine Bacteria Few A 06/06/19 06/06/19 06/06/19 09:34 09:34 09:34 WBC 15.1 H RBC Hgb Hct Gran % 97.3 H Lymph % (Auto) 1.7 L [place] % (Auto) 0.3 L Gran # 14.69 H Lymph # (Auto) 0.26 L [place] # (Auto) 0.05 L Seg Neutrophils % 96 H Lymphocytes % Potassium Chloride Carbon Dioxide 21 L BUN 51 H Creatinine 1.8 H Glucose 148 H Lactate Dehydrogenase NT-Pro-B Natriuret Pep 597.7 H Urine RBC Urine WBC Ur Squamous Epith Cells Urine Bacteria Meds: Medications Acetaminophen (Tylenol) 650 mg PO Q6HP PRN PRN Reason: PAIN/FEVER > 101 Albuterol/Ipratropium (Combivent) 2 puff INH TID [facility] Last Admin: 06/07/19 20:14 Dose: 2 puff Documented by: Clonidine HCl (Catapres) 0.1 mg PO Q6HP PRN PRN Reason: Hypertension SBP>150 Last Admin: 06/08/19 05:16 Dose: 0.1 mg Documented by: Docusate Sodium (Colace) 100 mg PO BID [facility] Last Admin: 06/07/19 20:14 Dose: Not Given Documented by: Heparin Sodium (Porcine) (Heparin) 5,000 unit SQ Q12 [facility] Last Admin: 06/07/19 20:15 Dose: 5,000 unit Documented by: Hydralazine HCl (Apresoline) 0 mg IV Q2HP PRN PRN Reason: Hypertension Last Admin: 06/07/19 20:15 Dose: 10 mg Documented by: Potassium Chloride 40 meq/ (Dextrose) 520 mls @ 130 mls/hr IV UD PRN PRN Reason: Potassium < 3 Magnesium Sulfate (Magnesium Sulfate) 2 gm in 50 mls @ 50 mls/hr IV UD PRN PRN Reason: Magnesium </= 1.6 Piperacillin Sod/Tazobactam (Sod 2.25 gm/ Dextrose) 50 mls @ 100 mls/hr IV Q6H [facility]; Protocol Last Infusion: 06/08/19 06:05 Dose: Infused Documented by: Ondansetron HCl (Zofran) 4 mg IV Q4HP PRN PRN Reason: Nausea And Vomiting Polyethylene Glycol (Miralax) 17 gm PO DAILYP PRN PRN Reason: Constipation Prednisone (Prednisone) 40 mg PO BIDCC [facility] Last Admin: 06/07/19 17:11 Dose: 40 mg Documented by: Senna (Senokot) 2 tab PO DAILYP PRN PRN Reason: Constipation Sodium Chloride (Saline Flush) 10 ml IV Q8 [facility] Last Admin: 06/08/19 05:16 Dose: 10 ml Documented by: Vancomycin HCl (Vancomycin Per Pharmacy) 1 order IV UD [facility]; Protocol Medical - PN: A/P - Time Spent With Patient Total time spent is greater than 50% in coordination of care (as documented) at patient's floor/unit and/or counseling patient: - Narrative A/P Narrative: A: *AECOPD (on 2L NC @home), mild: -RVP negative *Bacteremia (GPC & GNB): etiology unknown, always potential although UA unimpressive, no abd pain or wounds - *SIRS: -afebrile, -PCT/Leukocytosis improving elevated -Not toxic appearing *?AUBREY on CKD III: ?baseline -renal u/s showing mild right hydronephrosis *h/o of nephrolithiasis and bladder CA s/p radical cystectomy and ileal conduit: follows with Dr. Dasilva -renal u/s showing mild right hydronephrosis and b/l nonobstructing calculi *Hyperkalemia, mild: resolved P: -steroids(wean donw)/IH's -IS -COVID pending -cont Vanc/Zosyn, pending BC, f/u PCT -IVF's finished, f/u renal u/s for hydronephrosis in morning -d/c'd home potassium supp -consider CT a/p evaluate for source of infection once covid test back -ppx: lovenox DNR Medical - PN: Qual - VTE Deep Vein Thrombosis/Pulmonary Embolism Present on Admission: No
[2019-06-08] MEDS: predniSONE 20 MG TABLET PO SCH ×2 (08:40→09:13)
[2019-06-08] MEDS: IPRATROPIUM/ALBUTEROL SULFATE 1 PUFF INHALER INH SCH ×3 (09:14→20:38)
[2019-06-08] MEDS: VANCOMYCIN 1,000 MG in 0.9 % SODIUM CHLORIDE 250 ML IV SCH (09:14)
[2019-06-08] MEDS: DOCUSATE SODIUM 100 MG CAPSULE PO SCH ×2 (10:27→20:37)
[2019-06-08] MEDS: ENOXAPARIN 30 MG/0.3 ML SYRINGE SQ SCH (10:28)
[2019-06-09] MEDS: 0.9 % SODIUM CHLORIDE 10 ML SYRINGE IV SCH (05:48)
[2019-06-09] MEDS: PIPERACILLIN SODIUM/TAZOBACTAM 2.25 GM in DEXTROSE 5% IN WATER 50 ML IV SCH (05:48)
[2019-06-09 06:08] LABS: Basophils # (Auto) 0.02 K/mcL (0.00-0.30); Basophils % (Auto) 0.1 % (0.0-2.0); Eosinophils # (Auto) 0.02 K/mcL (0.00-0.70); Eosinophils % (Auto) 0.1 % (0.0-7.0); Granulocytes % (Auto) 87.8 % (38.0-78.0); Hematocrit 31.9 % (34.1-44.9); Hemoglobin 10.4 g/dL (11.2-15.7); Lymphocytes # (Auto) 1.13 K/mcL (1.50-4.80); Lymphocytes % (Auto) 6.3 % (15.5-49.0); Mean Cell Volume 95.5 fL (80.0-100.0); Mean Corpuscular HGB Conc 32.6 g/dL (31.0-36.0); Mean Platelet Volume 10.2 fL (7.4-10.4); Monocytes # (Auto) 1.03 K/mcL (0.10-0.90); Monocytes % (Auto) 5.7 % (1.0-12.0); Platelet Count 202 K/mcL (140-440); RBC 3.34 M/mcL (3.59-5.38); Red Cell Distribution Width 14.1 % (11.5-14.5)
[2019-06-09 06:31] LABS: Blood Urea Nitrogen 55 mg/dl (8-23); Calcium 8.7 mg/dl (8.6-10.4); Carbon Dioxide 21 mmol/L (22-30); Glomerular Filtration Rate 29; Glucose 111 mg/dL (70-105)
[2019-06-09 06:39] LABS: Chloride 109 mmol/L (96-108)
[2019-06-09] MEDS: predniSONE 20 MG TABLET PO SCH (07:14)
--- NOTE | 2019-06-09 07:20 | Internal Med Progress Note ---
Medical - PN: Subj Patient information: Note initiated : 06/09/19 at 7:13 am Service Date, if different from initiated Date: [] Patient: Ciarra Manzano 78 y/o F admitted on 06/06/19 for Fever. Chief Complaint: [] Interval history: Ms. Manzano is a 78 year old F Does the ED with fever and chills with a temperature of 102.9 at home. She has had nausea and had vomited yesterday only retching today. She denies shortness of breath. She denies any coughing either. However her says she has a chronic cough and feels it is worsening. Report of oxygen saturations the 80s when EMS arrived however she does wear oxygen at home and is reported that they placed 2 L on her. She did report some flank pain yesterday which is resolved. She does see Dr. Dasilva for urology issues. And she saw him last week and had a KUB which she says is unremarkable. Chest x-ray unremarkable. Per ED staff she had some wheezing when she first arrived and received nebulizers. She is febrile in the ED and tachycardic. UA unremarkable for infectious type markers, did have a little bit of blood as well as WBCs but also had squamous cells. Creatinine noted to be elevated. No obvious source of fever. However procalcitonin was elevated. And with concern with respiratory suspect this to be etiology however still unclear. Also reported some headache this morning. 06/06 Feeling better. Slept well. No new complaints. Denies cough today. Has chronic shortness of breath at baseline. Feeling pretty good. No pains chest or abdomen issues. 06/07 Sleeping well. No new complaints. Blood cultures growing gram-positive cocci and gram-negative bacillus. Repeat cultures drawn this morning. Patient is afebrile. White blood cell count improving. 06/08 Slept well. Having a little bit of achy pain right flank. No fevers or chills. No nausea chest pain. Review of Systems: denies headache/fever/chills/nausea/vomiting/chest or abdominal pain/diarrhea. Otherwise see above. - Constitutional Vitals: Vital Signs Temp Pulse Resp BP Pulse Ox 97.6 F 54 L 18 138/64 100 06/09/19 07:05 06/09/19 07:05 06/09/19 07:05 06/09/19 07:05 06/09/19 07:05 Period Temp Pulse Resp BP Sys/[place] Pulse Ox Last 24 Hr 97.6 F-98.0 F 54-78 16-20 112-174/49-74 96-100 Intake and Output 06/08/19 06/09/19 06/09/19 21:59 05:59 13:59 Intake Total 250 475 240 Output Total 176 2 Balance 74 473 240 Weight 65.317 kg Intake & Output: Intake & Output 06/08/19 06/09/19 06/09/19 21:59 05:59 13:59 Intake Total 250 475 240 Output Total 176 2 Balance 74 473 240 Weight 65.317 kg Intake: IV 50 50 Zosyn 2.25 gm In Dextrose 5% in 50 50 Water 50 ml @ 100 mls/hr IV Q6H [facility] Rx#:[id number] Oral 200 425 240 Output: Void Amount 175 # of times incontinent of urine 1 2 Other: Urine Color Bright Yellow Urine Odor Normal Exam: General: Alert, Awake, No acute Distress Eyes/N/T: EOMI, Head/Neck: neck supple, CV: RRR, No murmurs, Pulm: no wheezing/rhonchi abd: soft, nontender, +BS x4 Ext: no clubbing/cyanosis/edema Neuro: Alert, no focal deficits, moves all extremities, Skin: warm/dry Medical - PN: Obj Da - Labs CBC & Chem 7: 06/09/19 05:20 06/09/19 05:20 Labs: Abnormal Lab Results 06/09/19 06/09/19 06/08/19 05:20 05:20 05:15 WBC 18.0 H RBC 3.34 L Hgb 10.4 L Hct 31.9 L Gran % 87.8 H Lymph % (Auto) 6.3 L [place] % (Auto) Gran # 15.76 H Lymph # (Auto) 1.13 L [place] # (Auto) 1.03 H Seg Neutrophils % Lymphocytes % Potassium Chloride 109 H 112 H Carbon Dioxide 21 L 18 L BUN 55 H 54 H Creatinine 1.7 H 1.8 H Glucose 111 H 132 H Lactate Dehydrogenase NT-Pro-B Natriuret Pep Urine RBC Urine WBC Ur Squamous Epith Cells Urine Bacteria 04/19/20 04/18/20 04/18/20 05:15 07:12 07:12 WBC 20.9 H 25.3 H RBC 3.57 L Hgb 11.0 L Hct 34.0 L Gran % 91.8 H Lymph % (Auto) 2.6 L [place] % (Auto) Gran # 23.26 H Lymph # (Auto) 0.65 L [place] # (Auto) 1.39 H Seg Neutrophils % 94 H 81 H Lymphocytes % 4 L 6 L Potassium Chloride Carbon Dioxide BUN Creatinine Glucose Lactate Dehydrogenase NT-Pro-B Natriuret Pep Urine RBC Urine WBC Ur Squamous Epith Cells Urine Bacteria 06/07/19 06/06/19 06/06/19 05:15 10:53 09:34 WBC RBC Hgb Hct Gran % Lymph % (Auto) [place] % (Auto) Gran # Lymph # (Auto) [place] # (Auto) Seg Neutrophils % 96 H Lymphocytes % Potassium 5.4 H Chloride 109 H Carbon Dioxide 18 L BUN 48 H Creatinine 1.7 H Glucose 125 H Lactate Dehydrogenase 478 H NT-Pro-B Natriuret Pep Urine RBC 4 H Urine WBC 12 H Ur Squamous Epith Cells 9 H Urine Bacteria Few A 06/06/19 06/06/19 09:34 09:34 WBC 15.1 H RBC Hgb Hct Gran % 97.3 H Lymph % (Auto) 1.7 L [place] % (Auto) 0.3 L Gran # 14.69 H Lymph # (Auto) 0.26 L [place] # (Auto) 0.05 L Seg Neutrophils % Lymphocytes % Potassium Chloride Carbon Dioxide 21 L BUN 51 H Creatinine 1.8 H Glucose 148 H Lactate Dehydrogenase NT-Pro-B Natriuret Pep 597.7 H Urine RBC Urine WBC Ur Squamous Epith Cells Urine Bacteria Meds: Medications Acetaminophen (Tylenol) 650 mg PO Q6HP PRN PRN Reason: PAIN/FEVER > 101 Albuterol/Ipratropium (Combivent) 2 puff INH TID [facility] Last Admin: 06/08/19 20:38 Dose: 2 puff Documented by: Clonidine HCl (Catapres) 0.1 mg PO Q6HP PRN PRN Reason: Hypertension SBP>150 Last Admin: 06/08/19 19:27 Dose: 0.1 mg Documented by: Docusate Sodium (Colace) 100 mg PO BID [facility] Last Admin: 06/08/19 20:37 Dose: 100 mg Documented by: Enoxaparin Sodium (Lovenox) 30 mg SQ DAILY [facility] Last Admin: 06/08/19 10:28 Dose: 30 mg Documented by: Hydralazine HCl (Apresoline) 0 mg IV Q2HP PRN PRN Reason: Hypertension Last Admin: 06/07/19 20:15 Dose: 10 mg Documented by: Potassium Chloride 40 meq/ (Dextrose) 520 mls @ 130 mls/hr IV UD PRN PRN Reason: Potassium < 3 Magnesium Sulfate (Magnesium Sulfate) 2 gm in 50 mls @ 50 mls/hr IV UD PRN PRN Reason: Magnesium </= 1.6 Piperacillin Sod/Tazobactam (Sod 2.25 gm/ Dextrose) 50 mls @ 100 mls/hr IV Q6H [facility]; Protocol Last Admin: 06/09/19 05:48 Dose: 100 mls/hr Documented by: Vancomycin HCl 1,000 mg/ (Sodium Chloride) 250 mls @ 250 mls/hr IV Q24H [facility] Last Infusion: 06/08/19 10:20 Dose: Infused Documented by: Ondansetron HCl (Zofran) 4 mg IV Q4HP PRN PRN Reason: Nausea And Vomiting Polyethylene Glycol (Miralax) 17 gm PO DAILYP PRN PRN Reason: Constipation Prednisone (Prednisone) 40 mg PO QACOX [facility] Last Admin: 06/08/19 09:13 Dose: 40 mg Documented by: Senna (Senokot) 2 tab PO DAILYP PRN PRN Reason: Constipation Sodium Chloride (Saline Flush) 10 ml IV Q8 [facility] Last Admin: 06/09/19 05:48 Dose: 10 ml Documented by: Vancomycin HCl (Vancomycin Per Pharmacy) 1 order IV [facility]; Protocol Medical - PN: A/P - Time Spent With Patient Total time spent is greater than 50% in coordination of care (as documented) at patient's floor/unit and/or counseling patient: - Narrative A/P Narrative: A: *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 Dasilva -renal u/s showing mild right hydronephrosis and b/l nonobstructing calculi *Hyperkalemia, mild: resolved P: -steroids(wean)/IH's -IS -cont Vanc/Zosyn, pending repeat BC, -echo pending -CT /ca/p evaluate for source of infection -d/c'd home potassium supp -ppx: lovenox DNR Medical - PN: Qual - VTE Deep Vein Thrombosis/Pulmonary Embolism Present on Admission: No
[2019-06-09] MEDS ORDERED: predniSONE 20 MG TABLET PO SCH (08:00)
[2019-06-09] MEDS: DOCUSATE SODIUM 100 MG CAPSULE PO SCH (08:18)
[2019-06-09] MEDS: IPRATROPIUM/ALBUTEROL SULFATE 1 PUFF INHALER INH SCH (08:19)
[2019-06-09] MEDS: ENOXAPARIN 30 MG/0.3 ML SYRINGE SQ SCH (08:21)
--- NOTE | 2019-06-09 08:26 | Cat Scan Report ---
INDICATION: bacteremia,?source COMPARISON: Previous renal ultrasound dated 06/06/2019. Previous abdomen and pelvis CT scan dated 07/15/2018 TECHNIQUE: Axial images were obtained through the chest,abdomen and pelvis. Sagittally and coronally reformatted images. FINDINGS: Chest CT: Lungs:Centrilobular emphysema. Appearance suggests smoking history. No focal parenchymal density. No consolidation. There is no pulmonary parenchymal mass. Mediastinum:No mediastinal or hilar lymphadenopathy. Calcification of the thoracic aorta. Origin stenosis of the left subclavian artery is possible with densely calcified plaque. No aneurysmal enlargement or dissection. Main pulmonary artery is within normal limits. Heart:No cardiomegaly. No pericardial effusion. Mild coronary artery calcification Pleura:No pleural effusion. No pleural-based mass or calcification Axilla, supraclavicular regions, chest wall:No pathologic axillary or supraclavicular lymphadenopathy. Small thyroid nodules are probably benign Musculoskeletal:No thoracic compression fracture. Lytic lesions. Sternum and ribs are negative Abdomen/Pelvis: Liver:Negative to the limits of noncontrast enhanced examination. No detectable mass. Liver contour is smooth Gallbladder, bilary: Gallbladder is not visualized and has probably been removed. No dilated bile ducts Spleen:No splenomegaly. Pancreas:No pancreatic mass. No pancreatic duct dilatation. No peripancreatic abnormality Adrenal glands:Negative Kidneys, ureters, bladder: Probable left lower pole cysts, unchanged. These are not well evaluated on this noncontrast enhanced examination. Two benign cysts were identified on previous ultrasound. There are nonobstructing left renal calculi. Lower pole stones measure 8 and 4 mm maximally. Midpole calculus measures 8 mm. Left renal calculi are decreased since previous examination. There is no left hydronephrosis. There is a single tiny gas bubble in an upper pole calyx of the left kidney. This may indicate infection. No intraparenchymal gas. There is right-sided hydronephrosis. This was described as mild on 06/06/2019. This is at least moderate on present examination. There is an obstructing right ureteral calculus. This is in the proximal right ureter and is at approximately the L5-S1 level. Stone measures approximately 9 x 12 mm. There is proximal right hydroureter. There may be a single tiny gas bubble within the right renal pelvis, axial image 150/241. This is not definite. Patient apparently has bacteremia and pyonephrosis is not excluded. Right hydronephrosis and obstructing calculus are essentially unchanged since 07/15/2018 Urinary bladder is collapsed. No bladder calculi Gastrointestinal:No detectable colonic mass. No evidence for diverticulitis. Patient has had partial sigmoid colectomy. Colon between the anastomotic suture lines is somewhat dilated. This appearance is essentially stable. No evidence for diverticulitis. No diverticular abscess. Appendix is not visualized but there is no evidence for appendicitis Small bowel is negative. No mechanical small bowel obstruction Vascular:No abdominal aortic aneurysm. Origins of the superior mesenteric artery and celiac artery are normal. There is calcified plaque without significant dilatation. Lymphatic:No retroperitoneal or pathologic mesenteric adenopathy Mesentery, peritoneum:No intra-peritoneal fluid. No intra-abdominal abscess. No pneumoperitoneum Reproductive:Uterus is not visualized. No adnexal mass Musculoskeletal:No compression fractures. No lytic lesions. Sacrum, pelvis, hips are negative. No inguinal or abdominal wall hernia. Degenerative disc disease at L4-5 and L5-S1. Small midline pelvic anterior abdominal wall hernia. This does not contain bowel. There is a small umbilical hernia. This contains fat but no bowel. IMPRESSION: 1. 12 mm calculus in the proximal right ureter. Moderate to severe right hydronephrosis and proximal hydroureter. Findings are essentially unchanged since 07/15/2018 2. Nonobstructing left renal calculi 3. Possible subtle gas bubbles within the renal collecting systems bilaterally. Findings may be secondary to infection. There is no intraparenchymal gas bubbles 4. Centrilobular emphysema The exam was performed using radiation dose optimization techniques including, but not limited to, automated exposure control, adjustment of the mA and/or kV according to patient size and use of iterative reconstruction technique. Interpreted and Authenticated by: Long Patterson 06/09/19
[2019-06-09] MEDS: VANCOMYCIN 1,000 MG in 0.9 % SODIUM CHLORIDE 250 ML IV SCH (08:48)
--- NOTE | 2019-06-09 09:33 | Transfer Summary ---
Transfer Discharge Sum: Prov Patient information: Note initiated : 06/09/19 at 9:25 am Service Date, if different from initiated Date: [] Patient: Ciarra Manzano 78 y/o F admitted on 06/06/19 for Fever. Chief Complaint: [] Date of admission: 06/06/19 15:05 Discharge Date: 06/09/19 Primary care physician: Deborah Ramsay Consults: 06/06/19 12:44 Consult to Physician [CONS] Stat Comment: Consulting Provider: Mark Norwood Reason For Exam: Physician to Consult Transfer Discharge Sum: Med - Medications Active and Home Medications: Home Medications albuterol sulfate 90 mcg/actuation aerosol inhaler 2 puff INHALATION Q6H PRN 03/13/18 [History Confirmed 06/06/19] ferrous sulfate 27 mg iron tablet 27 mg PO DAILY tab 04/29/18 [History Confirmed 06/06/19] cholecalciferol (vitamin D3) 25 mcg (1,000 unit) capsule 1,000 unit PO DAILY cap 11/11/18 [History Confirmed 06/06/19] potassium citrate 10 mEq (1,080 mg) tablet,extended release 10 meq PO TID #90 tab 12/30/18 [Rx Confirmed 06/06/19] hydrocodone 10 mg-acetaminophen 325 mg tablet 1 tab PO Q6H PRN #20 tab 05/28/19 [Rx Confirmed 06/06/19] Active Medications Acetaminophen (Tylenol) 650 mg PO Q6HP PRN PRN Reason: PAIN/FEVER > 101 Albuterol/Ipratropium (Combivent) 2 puff INH TID [facility] Last Admin: 06/09/19 08:19 Dose: 2 puff Documented by: Clonidine HCl (Catapres) 0.1 mg PO Q6HP PRN PRN Reason: Hypertension SBP>150 Last Admin: 06/08/19 19:27 Dose: 0.1 mg Documented by: Docusate Sodium (Colace) 100 mg PO BID [facility] Last Admin: 06/09/19 08:18 Dose: 100 mg Documented by: Enoxaparin Sodium (Lovenox) 30 mg SQ DAILY [facility] Last Admin: 06/09/19 08:21 Dose: 30 mg Documented by: Hydralazine HCl (Apresoline) 0 mg IV Q2HP PRN PRN Reason: Hypertension Last Admin: 06/07/19 20:15 Dose: 10 mg Documented by: Potassium Chloride 40 meq/ (Dextrose) 520 mls @ 130 mls/hr IV UD PRN PRN Reason: Potassium < 3 Magnesium Sulfate (Magnesium Sulfate) 2 gm in 50 mls @ 50 mls/hr IV UD PRN PRN Reason: Magnesium </= 1.6 Piperacillin Sod/Tazobactam (Sod 2.25 gm/ Dextrose) 50 mls @ 100 mls/hr IV Q6H [facility]; Protocol Last Admin: 06/09/19 05:48 Dose: 100 mls/hr Documented by: Ondansetron HCl (Zofran) 4 mg IV Q4HP PRN PRN Reason: Nausea And Vomiting Polyethylene Glycol (Miralax) 17 gm PO DAILYP PRN PRN Reason: Constipation Prednisone (Prednisone) 20 mg PO QAC [facility] Last Admin: 06/09/19 08:12 Dose: Not Given Documented by: Senna (Senokot) 2 tab PO DAILYP PRN PRN Reason: Constipation Sodium Chloride (Saline Flush) 10 ml IV Q8 [facility] Last Admin: 06/09/19 05:48 Dose: 10 ml Documented by: Transfer Discharge Sum: Hosp Hospital course: Ms. Manzano is a 78 year old F Ms. Manzano is a 78 year old F Does the ED with fever and chills with a temperature of 102.9 at home. She has had nausea and had vomited yesterday only retching today. She denies shortness of breath. She denies any coughing either. However her says she has a chronic cough and feels it is worsening. Report of oxygen saturations the 80s when EMS arrived however she does wear oxygen at home and is reported that they placed 2 L on her. She did report some flank pain yesterday which is resolved. She does see Dr. Dasilva for urology issues. And she saw him last week and had a KUB which she says is unremarkable. Chest x-ray unremarkable. Per ED staff she had some wheezing when she first arrived and received nebulizers. She is febrile in the ED and tachycardic. UA unremarkable for infectious type markers, did have a little bit of blood as well as WBCs but also had squamous cells. Creatinine noted to be elevated. No obvious source of fever. However procalcitonin was elevated. And with concern with respiratory suspect this to be etiology however still unclear. Also reported some headache this morning. 06/06 Feeling better. Slept well. No new complaints. Denies cough today. Has chronic shortness of breath at baseline. Feeling pretty good. No pains chest or abdomen issues. 06/07 Sleeping well. No new complaints. Blood cultures growing gram-positive cocci and gram-negative bacillus. Repeat cultures drawn this morning. Patient is afebrile. White blood cell count improving. 06/08 Slept well. Having a little bit of achy pain right flank. No fevers or chills. No nausea chest pain. COVID test came back negative and finally able to get a CT scan which showed moderate to severe right hydronephrosis with an obstructing 12 mm stone. Cr stable but elevated from recent baseline. Discussed case with Dr. 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 I then Discussed case with Dr. Ochoa (interventional radiologist) and Dr. Adame (hospitalist) who have accepted patient. pt is NPO after breakfast this morning for potential afternoon procedure. A: *Bacteremia (Aerooccus and Oligella) 2/ infection: *SIRS: -afebrile, PCT/Leukocytosis improving elevated, Not toxic appearing *AUBREY on CKD III: -f/u CT imaging showing mod-severe right Hydronephrosis with obstructing 12mm stone proximal ureter *h/o of nephrolithiasis and bladder CA s/p radical cystectomy and ileal conduit: follows with Dr. 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 Discussed case with Dr. Ochoa who will place a nephrostomy tube likely later today. Will discuss with Hospitalist team at [facility] for transfer. -steroids(wean) short course/IH's -IS -d/c'd home potassium supp - Time Spent with Patient Total time spent providing and/or coordinating transfer services: Transfer Discharge Sum: Exam - Constitutional Vitals: Vital Signs Temp Pulse Resp BP Pulse Ox 06/09/19 07:05 97.6 F 54 L 18 138/64 100 06/09/19 03:00 97.8 F 54 L 16 112/63 100 06/08/19 23:45 97.8 F 58 L 16 122/61 98 06/08/19 22:05 61 124/67 06/08/19 19:20 97.8 F 72 20 158/65 100 06/08/19 16:28 97.7 F 66 20 174/71 98 06/08/19 13:00 97.8 F 78 18 130/74 97 Intake and Output 06/08/19 06/09/19 06/09/19 21:59 05:59 13:59 Intake Total 250 475 240 Output Total 176 2 Balance 74 473 240 Intake: IV 50 50 Zosyn 2.25 gm In Dextrose 5% in 50 50 Water 50 ml @ 100 mls/hr IV Q6H [facility] Rx#:[id number] Oral 200 425 240 Output: Void Amount 175 # of times incontinent of urine 1 2 Other: Urine Color Bright Yellow Urine Odor Normal Weight 65.317 kg Transfer Discharge Sum: Data Procedures and tests throughout hospitalization: Pending Orders 06/06/19 09:36 Nebulizer management .Routine 06/06/19 10:12 Blood Culture Stat 06/06/19 12:44 Consult to Physician [CONS] Stat 06/06/19 14:11 Resuscitation Status Routine 06/06/19 15:35 Acetaminophen [Tylenol] 650 mg PO Q6HP PRN Magnesium Sulfate 2 gm in 50 ml IV UD Ondansetron [Zofran] 4 mg IV Q4HP PRN Polyethylene Glycol 3350 [Miralax] 17 gm PO DAILYP PRN Potassium Chloride 40 meq Dextrose 5% in Water 500 ml IV UD Sennosides [Senokot] 2 tab PO DAILYP PRN 06/06/19 15:35 Admit as Inpatient Routine Ambulate-Progressive BID Elevate head of bed .ROUTINE IV Insertion/Management QSHIFT Intake and Output qshiftio Notify Provider .routine Up to chair PRN Vital Signs 00,04,08,12,16,[address] to Adjust Diet/Supplements as Needed Routine Occupational Therapy Eval & Tx DAILY Physical Therapy Eval & Tx QD-BID Incentive Spirometry Assess/Tx Q1HWA Nebulizer management .Routine PEP Therapy/Acapella .ROUTINE Pulse Oximetry .ROUTINE 06/06/19 18:00 Piperacillin Sodium/Tazobactam [Zosyn] 2.25 gm Dextrose 5% in Water 50 ml IV Q6H 06/06/19 21:00 Docusate Sodium [Colace] 100 mg PO BID Ipratropium/Albuterol Sulfate [Combivent] 2 puff INH TID 06/06/19 22:00 0.9 % Sodium Chloride [Saline Flush] 10 ml IV Q8 06/07/19 18:08 Communication order ONCE 06/07/19 19:12 cloNIDine HCL [Catapres] 0.1 mg PO Q6HP PRN hydrALAZINE [Apresoline] See Dose Instructions IV Q2HP PRN 06/08/19 05:25 Blood Culture Routine 06/08/19 09:00 Enoxaparin [Lovenox] 30 mg SQ DAILY 06/08/19 09:12 Midline Insertion/Manangement .ROUTINE 06/09/19 07:18 US echo doppler Urgent 06/09/19 08:00 predniSONE 20 mg PO [facility] 06/09/19 09:08 NPO Diet (NOW) Urine Culture Urgent 06/10/19 05:00 Basic Metabolic Panel Routine Complete Blood Count Routine Transfer Discharge Sum: A/P - Plan Disposition: Xfer [facility] Quality Measure Queries - VTE Deep Vein Thrombosis/Pulmonary Embolism Present on Admission: No
[2019-06-09 11:30] LABS: Appearance,Urine CLEAR; Bacteria,Urine 0 /hpf (0); Bilirubin,Urine NEG (NEG); Color,Urine STRAW; Glucose,Urine (UA) NEGATIVE (NEG); Ketones,Urine NEG (NEG); Leukocyte Esterase,Urine 250 /uL (NEG); Mucus,Urine FEW /hpf (0); Nitrate,Urine NEG (NEG); Protein,Urine 30 mg/dL (NEG); Specific Gravity,Urine 1.012 (1.000-1.035); Urine Blood 0.2 mg/dL (<0.03); Urine RBC 14 /hpf (0-1); Urine Squamous Epithelial Cell < 1 /hpf (0-4); Urine Transitional Epi Cells < 1 /hpf (0-2); Urine WBC 28 /hpf (0-4); Urobilinogen,Urine NEG (NEG)
== END 2019-06-09 11:06 | disposition short-term general hospital (02) | DRG 690 ==
LOC: ED 08:33 → ICU 15:05 → MEDSUR 06-08 15:10
PROVIDERS: ADMIT Internal Medicine; ATTEND Internal Medicine